=== PATIENT | female | born 1940 | race African-American/Black ===

== ENCOUNTER 2017-10-23 10:40 | Emergency (ER) | payer MEDICARE ==
[~2017-10-23] VITALS: Ht 160 cm; Wt 94.3 kg
[~2017-10-23 10:40] MED LIST: ALLP300T; AMOX500C2; ASCO500C14; ASPI-86; FLC150T PO; FURO80TA3; LEVO125T; LISI10TA2 PO; MECL-124 PO; MULT1TAB5; NTR.4SL; PANT40TA; POTA10TA6; TRZS2T; [UNRECOGNIZED DRUG - CODE]
--- OUTSIDE RECORDS SUMMARY | 2017-10-23 10:49 | XMS REPORT | CCD ---
Author Author Charlene Valerio MD, [facility] Address [address] [place] [address] Phone Care Team Providers Care Tobacco Educator Name Role Phone PP Unavailable CCM Unavailable Summary Purpose Interface Exchange Insurance Providers Payer name Policy type / Coverage type Covered constitution party ID Effective Begin Date Effective End Date [employer] CLAIMS Medicare Part B [id number] Unknown Family history Brother Diagnosis Age At Onset Hypertension Unknown Heart Attack Unknown Cancer Unknown Arthritis Unknown Alcoholism Unknown Mother Diagnosis Age At Onset Hypertension Unknown Arthritis Unknown Heart Attack Unknown Father Diagnosis Age At Onset Hypertension Unknown Son Diagnosis Age At Onset Hypertension Unknown Alcoholism Unknown Arthritis Unknown Social History Social History Element Codes Description Effective Dates Living arrangements Unknown House 11/12/2015 Employment Unknown Retired 11/12/2015 Marital status Unknown 10/28/2014 Marital status Unknown 10/28/2014 Number of children Unknown 2 10/28/2014 Number of children Unknown 2 10/28/2014 Employment Unknown Currently employed conference service coordinator 10/28/[address]: 0918509 Former smoker quit 10 years ago 10/28/[address]: 644081676 Never drinks alcohol 10/28/2014 Allergies, Adverse Reactions, Alerts Allergies, Adverse Reactions, Alerts data not found Past Medical History Illness Codes Condition Status Onset Date Resolved Date Atrophy of thyroid (acquired) ICD-9: 244.8 ICD-10: E03.4 Active 04/03/2016 Unknown Essential (primary) hypertension ICD-9: 401.1 ICD-10: I10 Active 04/03/2016 Unknown Hypokalemia ICD-9: 276.8 ICD-10: E87.6 Active 08/23/2015 Unknown Mixed hyperlipidemia ICD-9: 272.4 ICD-10: E78.2 Active 10/13/2015 Unknown Type 2 diabetes mellitus without complications ICD-9: 250.00 ICD-10: E11.9 Active 10/27/2014 Unknown Pain in left hip ICD-9 : 719.45 ICD-10: M25.552 Active 06/07/2015 Unknown Primary osteoarthritis, left ankle and foot ICD-9: 715.97 ICD-10: M19.072 Active 04/03/2016 Unknown Primary osteoarthritis, right ankle and foot ICD-9: 715.97 ICD-10: M19.071 Active 04/03/2016 Unknown Primary osteoarthritis, right shoulder ICD-9: 715.91 ICD-10: M19.011 Active 04/03/2016 Unknown Essential (primary) hypertension ICD-9: 401.9 ICD-10: I10 Active 10/27/2014 Unknown Hypothyroidism, unspecified ICD-9: 244.9 ICD-10: E03.9 Active 10/27/2014 Unknown Primary osteoarthritis, unspecified site ICD-9: 715.90 ICD-10: M19.91 Active 06/07/2015 Unknown Hyperlipidemia Unknown Active 12/19/2014 Unknown HYPERLIPIDEMIA ICD-9: 272.4 Active 12/18/2014 Unknown Arthritis Unknown Active 10/28/2014 Unknown Diabetes Unknown Active 10/28/2014 Unknown Gout Unknown Active 10/28/2014 Unknown Hypertension Unknown Active 10/28/2014 Unknown Hypothryroidism Unknown Active 10/28/2014 Unknown Hypothyroid Unknown Active 10/28/2014 Unknown Osteoarthritis Unknown Active 10/28/2014 Unknown sleep apnea Unknown Active 10/28/2014 Unknown DIABETES TYPE II ICD-9 : 250.00 Active 10/27/2014 Unknown EDEMA ICD-9: 782.3 Active 10/27/2014 Unknown ESSENTIAL HYPERTENSION ICD-9: 401.9 Active 10/27/2014 Unknown HYPOTHYROIDISM ICD-9: 244.9 Active 10/27/2014 Unknown Osteoarthritis ICD-9: 715.90 Active 10/27/2014 Unknown Problems Condition Codes Effective Dates Condition Status Atrophy of thyroid (acquired) ICD-9: 244.8 ICD-10: E03.4 04/03/2016 Active Essential (primary) hypertension ICD-9: 401.1 ICD-10: I10 04/03/2016 Active Hypokalemia ICD-9: 276.8 ICD-10: E87.6 08/23/2015 Active Mixed hyperlipidemia ICD-9: 272.4 ICD-10: E78.2 10/13/2015 Active Type 2 diabetes mellitus without complications ICD-9: 250.00 ICD-10: E11.9 10/27/2014 Active Pain in left hip ICD-9 : 719.45 ICD-10: M25.552 06/07/2015 Active Primary osteoarthritis, left ankle and foot ICD-9: 715.97 ICD-10: M19.072 04/03/2016 Active Primary osteoarthritis, right ankle and foot ICD-9: 715.97 ICD-10: M19.071 04/03/2016 Active Primary osteoarthritis, right shoulder ICD-9: 715.91 ICD-10: M19.011 04/03/2016 Active Essential (primary) hypertension ICD-9: 401.9 ICD-10: I10 10/27/2014 Active Hypothyroidism, unspecified ICD-9: 244.9 ICD-10: E03.9 10/27/2014 Active Primary osteoarthritis, unspecified site ICD-9: 715.90 ICD-10: M19.91 06/07/2015 Active Hyperlipidemia Unknown 12/19/2014 Active HYPERLIPIDEMIA ICD-9: 272.4 12/18/2014 Active Arthritis Unknown 10/28/2014 Active Diabetes Unknown 10/28/2014 Active Gout Unknown 10/28/2014 Active Hypertension Unknown 10/28/2014 Active Hypothryroidism Unknown 10/28/2014 Active Hypothyroid Unknown 10/28/2014 Active Osteoarthritis Unknown 10/28/2014 Active sleep apnea Unknown 10/28/2014 Active DIABETES TYPE II ICD-9 : 250.00 10/27/2014 Active EDEMA ICD-9: 782.3 10/27/2014 Active ESSENTIAL HYPERTENSION ICD-9: 401.9 10/27/2014 Active HYPOTHYROIDISM ICD-9: 244.9 10/27/2014 Active Osteoarthritis ICD-9: 715.90 10/27/2014 Active Medications Medication Codes Instructions Start Date Stop Date Status Fill Instructions hydrochlorothiazide 12.5 mg capsule RxNorm: 781918 TAKE 1 CAPSULE BY MOUTH ONCE DAILY 05/29/2017 11/24/2017 Active Generic For:MICROZIDE 12.5 MG CAPSULE 2017 9:17:14 AM naproxen 500 mg tablet,delayed release RxNorm: 510951 TAKE 1 TABLET BY MOUTH TWICE DAILY 05/17/2017 08/14/2017 Active Generic For:EC-NAPROSYN 500 MG TABLET EC N O T I C E Last quantity doesn't match original quantity propranolol 60 mg tablet RxNorm: 439251 TAKE 1 TABLET BY MOUTH TWICE DAILY 04/17/2017 08/14/2017 Active Generic For:INDERAL 60 MG TABLET 04/17/2017 9:35:56 AM Synthroid 112 mcg tablet RxNorm: 499338 Tablet(s) TAKE 1 TABLET BY MOUTH ONCE DAILY 03/14/2017 09/09/2017 Active meclizine 25 mg tablet RxNorm: 439980 TAKE 1 TABLET BY MOUTH EVERY SIX HOURS 02/17/2017 04/26/2017 Inactive Generic For:ANTIVERT 25MG 02/17/2017 9:10:40 AM clonidine HCl 0.1 mg tablet RxNorm: 322400 TAKE 1 TABLET BY MOUTH TWICE DAILY 01/19/2017 01/13/2018 Active Generic For:*CATAPRES 0.1MG 01/19/2017 12:14:44 PM terazosin 2 mg capsule RxNorm: 431933 TAKE ONE CAPSULE BY MOUTH ONCE DAILY 01/18/2017 01/12/2018 Active pantoprazole 40 mg tablet,delayed release RxNorm: 839511 TAKE 1 TABLET BY MOUTH DAILY 01/13/2017 05/12/2017 Inactive Generic For:PROTONIX 40MG 01/13/2017 12:17: 18 PM Lasix 80 mg tablet RxNorm: 954291 TAKE 1 TABLET BY MOUTH ONCE DAILY. 12/30/2016 07/27/2017 Active 12/30/2016 12:20:22 PM allopurinol 300 mg tablet RxNorm: 367314 Tablet(s) TAKE 1 TABLET BY MOUTH ONCE DAILY. 12/20/2016 12/14/2017 Active propranolol 60 mg tablet RxNorm: 661242 1 Tablet(s) PO BID 02/201712/14/2016 Inactive propranolol 60 mg tablet RxNorm: 344240 1 Tablet(s) PO BID 1 Tablet(s) PO BID 12/15/2016 04/16/2017 Inactive hydrochlorothiazide 12.5 mg capsule RxNorm: 998437 1 Capsule(s) PO daily 11/21/2016 05/19/2017 Inactive irbesartan 300 mg-hydrochlorothiazide 12.5 mg tablet RxNorm: 402791 TAKE 1 TABLET BY MOUTH DAILY 11/16/2016 07/13/2017 Active Generic For:AVALIDE 300-12.5 2016 9:01:14 AM Synthroid 112 mcg tablet RxNorm: 391814 Tablet(s) TAKE 1 TABLET BY MOUTH ONCE DAILY 11/16/2016 02/13/2017 Inactive naproxen 500 mg tablet,delayed release RxNorm: 961627 1 Tablet(s) PO BID 09/05/2016 12/03/2016 Inactive pantoprazole 40 mg tablet,delayed release RxNorm: 594921 TAKE 1 TABLET BY MOUTH DAILY 08/17/2016 12/14/2016 Inactive Generic For:PROTONIX 40MG 08/17/2016 9:32:54 AM Synthroid 112 mcg tablet RxNorm: 401186 Tablet(s) TAKE 1 TABLET BY MOUTH ONCE DAILY 08/15/2016 11/12/2016 Inactive propranolol 60 mg tablet RxNorm: 946451 1 Tablet(s) PO BID 11/29/2016 Inactive terazosin 2 mg capsule RxNorm: 785929 TAKE ONE CAPSULE BY MOUTH ONCE DAILY 07/18/2016 01/13/2017 Inactive meclizine 25 mg tablet RxNorm: 031368 TAKE 1 TABLET BY MOUTH EVERY SIX HOURS 07/11/2016 09/17/2016 Inactive Generic For:ANTIVERT 25MG 07/09/2016 10:01:07 AM potassium chloride ER 10 mEq tablet,extended release RxNorm: 116919 TAKE 2 TABLETS BY MOUTH THREE TIMES DAILY 05/13/2016 11/08/2016 Inactive Generic For:K- TAB 10 MEQ TABLET SA 05/13/2016 8:53:02 AM N O T I C E Last quantity doesn' t match original quantity hydrochlorothiazide 12.5 mg capsule RxNorm: 475751 1 Capsule(s) PO daily 05/06/2016 11/01/2016 Inactive pantoprazole 40 mg tablet,delayed release RxNorm: 211744 TAKE 1 TABLET BY MOUTH DAILY 04/19/2016 08/16/2016 Inactive Generic For:PROTONIX 40MG 04/19/2016 9:02:12 AM irbesartan 300 mg-hydrochlorothiazide 12.5 mg tablet RxNorm: 887490 TAKE 1 TABLET BY MOUTH DAILY 03/21/2016 11/15/2016 Inactive Generic For:AVALIDE 300-12.5 2015 9:00:59 AM meclizine 25 mg tablet RxNorm: 985099 TAKE 1 TABLET BY MOUTH EVERY SIX HOURS 02/02/2016 04/10/2016 Inactive Generic For:ANTIVERT 25MG 02/02/2016 9:01:57 AM terazosin 2 mg capsule RxNorm: 048223 TAKE ONE CAPSULE BY MOUTH ONCE DAILY 01/19/2016 07/16/2016 Inactive Synthroid 112 mcg tablet RxNorm: 129756 TAKE 1 TABLET BY MOUTH ONCE DAILY 01/15/2016 07/12/2016 Inactive 01/15/2016 10:18:42 AM N O T I C E Last quantity doesn't match original quantity clonidine HCl 0.1 mg tablet RxNorm: 981714 TAKE 1 TABLET BY MOUTH TWICE DAILY 01/15/2016 01/08/2017 Inactive Generic For:*CATAPRES 0.1MG 01/15/2016 10:18:15 AM N O T I C E Last quantity doesn't match original quantity Nitrostat 0.4 mg sublingual tablet RxNorm: 246032 1 Tablet(s) SL as needed 12/31/2015 No Stop Date Active hydrochlorothiazide 12.5 mg capsule RxNorm: 784033 1 Capsule(s) PO daily 12/22/2015 04/19/2016 Inactive pantoprazole 40 mg tablet,delayed release RxNorm: 499399 TAKE 1 TABLET BY MOUTH DAILY 12/22/2015 04/18/2016 Inactive Generic For:PROTONIX 40MG 12/21/2015 12:25: 32 PM hydrochlorothiazide 12.5 mg capsule RxNorm: 511342 1 Capsule(s) PO daily 12/22/2015 12/21/2015 Inactive allopurinol 300 mg tablet RxNorm: 859010 Tablet(s) TAKE 1 TABLET BY MOUTH ONCE DAILY. 11/23/2015 11/16/2016 Inactive naproxen 500 mg tablet,delayed release RxNorm: 932298 1 Tablet(s) PO BID 11/16/2015 02/13/2016 Inactive propranolol 80 mg tablet RxNorm: 305562 TAKE 1 TABLET BY MOUTH TWICE DAILY 11/06/2015 08/01/2016 Inactive Generic For:INDERAL 80 MG TABLET 11/06/2015 9:07: 57 AM terazosin 2 mg capsule RxNorm: 850938 TAKE ONE CAPSULE BY MOUTH ONCE DAILY 10/22/2015 01/18/2016 Inactive Synthroid 112 mcg tablet RxNorm: 176278 1 Tablet(s) PO daily 01/14/2016 Inactive meclizine 25 mg tablet RxNorm: 712990 1 Tablet(s) PO Q6 201512/05/2015 Inactive potassium chloride ER 10 mEq tablet,extended release RxNorm: 672621 2 Tablet(s) PO TID 08/31/2015 02/26/2016 Inactive pantoprazole 40 mg tablet,delayed release RxNorm: 276407 1 Tablet(s) PO daily 07/27/2015 11/23/2015 Inactive irbesartan 300 mg-hydrochlorothiazide 12.5 mg tablet RxNorm: 632229 1 Tablet(s) PO daily 07/27/2015 03/20/2016 Inactive potassium chloride ER 10 mEq tablet,extended release RxNorm: 555296 2 Tablet(s) PO TID 07/24/2015 08/22/2015 Inactive potassium chloride ER 10 mEq tablet,extended release RxNorm: 648971 Tablet(s) TID 2 Tablet(s) PO 07/01/2015 07/23/2015 Inactive Lasix 80 mg tablet RxNorm: 975008 TAKE 1 TABLET BY MOUTH ONCE DAILY. 06/29/2015 01/24/2016 Inactive N O T I C E PRESCRIPTION PREVIOUSLY AUTHORIZED BY DOCTOR: NADINE JAMES potassium chloride ER 10 mEq tablet,extended release RxNorm: 910676 Tablet(s) BID 2 Tablet(s) PO 06/22/2015 06/30/2015 Inactive potassium chloride ER 10 mEq tablet,extended release RxNorm: 892414 Tablet(s) BID 2 Tablet(s) PO daily 06/09/20152015 Inactive Synthroid 112 mcg tablet RxNorm: 521715 1 Tablet(s) PO daily 09/30/2015 Inactive hydrochlorothiazide 12.5 mg tablet RxNorm: 208588 1 Tablet(s) PO daily 1 Tablet(s ) PO daily 05/26/2015 11/11/2015 Inactive Synthroid 125 mcg tablet RxNorm: 466416 1 Tablet(s) PO daily 06/08/2015 Inactive Synthroid 125 mcg tablet RxNorm: 206551 1 Tablet(s) PO daily 04/05/2015 Inactive hydrochlorothiazide 12.5 mg tablet RxNorm: 608997 1 Tablet(s) PO daily 1 Tablet(s ) PO daily 03/24/2015 05/22/2015 Inactive potassium chloride ER 10 mEq tablet,extended release RxNorm: 599092 2 Tablet(s) PO daily 03/16/2015 06/08/2015 Inactive allopurinol 300 mg tablet RxNorm: 730123 TAKE 1 TABLET BY MOUTH ONCE DAILY. 03/09/2015 11/22/2015 Inactive N O T I C E PRESCRIPTION PREVIOUSLY AUTHORIZED BY DOCTOR:NADINE JAMES clonidine HCl 0.1 mg tablet RxNorm: 173415 1 Tablet(s) PO BID 01/12/2015 01/06/2016 Inactive Synthroid 137 mcg tablet RxNorm: 708807 1 Tablet(s) PO daily 04/05/2015 Inactive meclizine 25 mg tablet RxNorm: 457763 1 Tablet(s) PO Q6 201403/22/2015 Inactive Voltaren 1 % topical gel RxNorm: 961348 4 Gram(s) TOP QID to bilateral knees and left hip 12/19/2014 07/16/2015 Inactive hydrochlorothiazide 12.5 mg tablet RxNorm: 410328 1 Tablet(s) PO daily 12/15/2014 02/12/2015 Inactive irbesartan 300 mg-hydrochlorothiazide 12.5 mg tablet RxNorm: 618388 1 Tablet(s) PO daily 11/25/2014 07/22/2015 Inactive potassium chloride ER 10 mEq tablet,extended release RxNorm: 850425 2 Tablet(s) PO daily 11/13/2014 03/12/2015 Inactive potassium chloride ER 10 mEq tablet,extended release RxNorm: 565374 2 Tablet(s) PO daily 11/13/2014 11/12/2014 Inactive propranolol 80 mg tablet RxNorm: 465706 1 Tablet(s) PO BID 10/28/2015 Inactive terazosin 2 mg capsule RxNorm: 083904 1 Capsule(s) PO daily 10/21/2015 Inactive terazosin 2 mg capsule RxNorm: 900695 1 Capsule(s) PO daily 10/29/2014 Inactive pantoprazole 40 mg tablet,delayed release RxNorm: 246271 1 Tablet(s) PO daily 10/28/2014 10/27/2014 Inactive hydrochlorothiazide 12.5 mg tablet RxNorm: 546922 1 Tablet(s) PO daily 10/28/2014 11/26/2014 Inactive pantoprazole 40 mg tablet,delayed release RxNorm: 062138 1 Tablet(s) PO daily 10/28/2014 02/24/2015 Inactive propranolol 80 mg tablet RxNorm: 853465 1 Tablet(s) PO BID 09/30/2014 Inactive propranolol 80 mg tablet RxNorm: 388561 1 Tablet(s) PO BID 10/30/2014 Inactive clonidine HCl 0.1 mg tablet RxNorm: 353206 1 Tablet(s) PO BID 09/08/2014 01/05/2015 Inactive Nitrostat 0.4 mg sublingual tablet RxNorm: 486108 1 Tablet(s) SL as needed No Start Date 12/30/2015 Inactive KCL 10 meq RxNorm: 1 Tablet(s) PO BID No Start Date 11/13/2014 Inactive allopurinol 300 mg tablet RxNorm: 337240 1 Tablet(s) PO daily No Start Date 03/08/2015 Inactive meclizine 25 mg tablet RxNorm: 767428 1 Tablet(s) PO TID No Start Date 12/22/2014 Inactive naproxen 500 mg tablet,delayed release RxNorm: 477526 1 Tablet(s) PO BID No Start Date 11/15/2015 Inactive irbesartan 300 mg-hydrochlorothiazide 12.5 mg tablet RxNorm: 398959 1 Tablet(s) PO daily No Start Date 11/24/2014 Inactive Synthroid 150 mcg tablet RxNorm: 843457 1 Tablet(s) PO daily No Start Date 12/23/2014 Inactive Lasix 80 mg tablet RxNorm: 283145 1 Tablet(s) PO daily No Start Date 06/28/2015 Inactive Medication Administered No Medication Administered data Immunizations No Immunization data Assessments Condition Codes Effective Dates Essential (primary) hypertension ICD-10: I10 ICD-9: 401.1 12/15/2016 Atrophy of thyroid (acquired) ICD-10: E03.4 ICD-9: 244.8 12/15/2016 Hypokalemia ICD-10: E87.6 ICD-9: 276.8 12/15/2016 Type 2 diabetes mellitus without complications ICD-10: E11.9 ICD-9: 250.00 08/18/2016 Mixed hyperlipidemia ICD-10: E78.2 ICD-9: 272.4 08/18/2016 Primary osteoarthritis, right ankle and foot ICD-10: M19.071 ICD-9: 715.97 08/02/2016 Primary osteoarthritis, left ankle and foot ICD-10: M19.072 ICD-9: 715.97 08/02/2016 Pain in left hip ICD-10: M25.552 ICD-9: 719.45 08/02/2016 Primary osteoarthritis, right shoulder ICD-10: M19.011 ICD-9: 715.91 08/02/2016 Hypothyroidism, unspecified ICD-10: E03.9 ICD-9: 244.9 11/12/2015 Essential (primary) hypertension ICD-10: I10 ICD-9: 401.9 11/12/2015 Primary osteoarthritis, unspecified site ICD-10: M19.91 ICD-9: 715.90 06/08/2015 ESSENTIAL HYPERTENSION ICD-9: 401.9 12/19 Osteoarthritis ICD-9: 715.90 12/19/2014 DIABETES TYPE II ICD-9: 250.00 2014 HYPERLIPIDEMIA ICD-9: 272.4 12/19/2014 HYPOTHYROIDISM ICD-9: 244.9 10/28/2014 EDEMA ICD-9: 782.3 10/28/2014 Reason For Visit Reason For Visit Effective Dates Notes hypertension 12/15/2016 hypertension 08/18/2016 hypertension 08/02/2016 hypertension 04/04/2016 hypertension 11/12/2015 blood pressure followup 06/08/2015 hands at night joint complaint 12/19/2014 joint complaint 10/28/2014 Results Observation Observation Code Item Item Code Result Date Lipid Ord30 CHOL 213 mg/dL 04/28/2016 Lipid Ord30 HDL 58.0 mg/dl 04/28/2016 Lipid Ord30 TRIG 70 mg/dL 04/28/2016 Lipid Ord30 LDL 141 mg/dL 04/28/2016 Lipid Ord30 C/HDL 3.7 Ratio 04/28/2016 Cbc With Differential Ord2 WBC 4.77 K/ul 04/28/2016 Cbc With Differential Ord2 RBC 3.97 M/ul 04/28/2016 Cbc With Differential Ord2 HGB 12.4 g/dl 04/28/2016 Cbc With Differential Ord2 HCT 37.6 % 04/28/2016 Cbc With Differential Ord2 Neut% 58.3 % 04/28/2016 Cbc With Differential Ord2 MCV 94.7 fl 04/28/2016 Cbc With Differential Ord2 Lymph% 33.1 % 04/28/2016 Cbc With Differential Ord2 MCH 31.2 pg 04/28/2016 Cbc With Differential Ord2 [place]% 7.8 % 04/28/2016 Cbc With Differential Ord2 Eos% 0.6 % 04/28/2016 Cbc With Differential Ord2 MCHC 33.0 pg 04/28/2016 Cbc With Differential Ord2 Baso% 0.2 % 04/28/2016 Cbc With Differential Ord2 PLT 191 K/ul 04/28/2016 Cbc With Differential Ord2 RDW 15.4 % 04/28/2016 Cbc With Differential Ord2 Neut ABS# 2.78 K/ul 04/28/2016 Cbc With Differential Ord2 Lymph ABS# 1.58 K/ul 04/28/2016 Cbc With Differential Ord2 [place] ABS# 0.4 K/ul 04/28/2016 Cbc With Differential Ord2 Eos ABS# 0.0 K/ul 04/28/2016 Cbc With Differential Ord2 Baso ABS# 0.0 K/ul 04/28/2016 %Hba1C Uor900 % HbA1c 93305-6 5.4 % 04/28/2016 %Hba1C Rgb040 Gluc Ave 108 mg/dL 04/28/2016 Tsh Ord6 hTSH II 2.73 uIU/mL 04/28/2016 Comp Metabolic Wyt437 NA 138 mEq/L 04/28/2016 Comp Metabolic Kbl968 K 3.5 mEq/L 04/28/2016 Comp Metabolic Wzy148 CL 101 mEq/L 04/28/2016 Comp Metabolic Eep853 CO2 30.0 mEq/L 04/28/2016 Comp Metabolic Wtc165 ANION GAP 11 04/28/2016 Comp Metabolic Xkn318 GLUCOSE 91 mg/dL 04/28/2016 Comp Metabolic Lsv184 Creat 0.5 mg/dL 04/28/2016 Comp Metabolic Qdm511 eGFR 127 ml/min/1.73m2 04/28/2016 Comp Metabolic Eno946 BUN 14 mg/dL 04/28/2016 Comp Metabolic Yyi217 B/C Ratio 28.0 Ratio 04/28/2016 Comp Metabolic Sex867 CALCIUM 10.0 mg/dL 04/28/2016 Comp Metabolic Qav007 ALK PHOS 115 U/L 04/28/2016 Comp Metabolic Oht302 AST(SGOT) 15 U/L 04/28/2016 Comp Metabolic Ybr165 ALT(SGPT) 11 U/L 04/28/2016 Comp Metabolic Yzk454 BILI T 0.7 mg/dL 04/28/2016 Comp Metabolic Qgv528 ALBUMIN 3.9 g/dL 04/28/2016 Comp Metabolic Zqf674 TPRO 6.8 g/dL 04/28/2016 Comp Metabolic Gsi476 GLOB 2.9 g/dL 04/28/2016 Comp Metabolic Qzp455 A/G Ratio 1.4 Ratio 04/28/2016 Comp Metabolic Pxz992 Osmo 276 mOsmo 04/28/2016 Metabolic Ord15 NA 138 mEq/L 10/15/2015 Metabolic Ord15 K 3.4 mEq/L 10/15/2015 Metabolic Ord15 CL 101 mEq/L 10/15/2015 Metabolic Ord15 CO2 28.0 mEq/L 10/15/2015 Metabolic Ord15 GLUCOSE 82 mg/dL 10/15/2015 Metabolic Ord15 BUN 14 mg/dL 10/15/2015 Metabolic Ord15 Creat 0.5 mg/dL 10/15/2015 Metabolic Ord15 B/C Ratio 25.9 Ratio 10/15/2015 Metabolic Ord15 eGFR 117 ml/min/1.73m2 10/15/2015 Metabolic Ord15 Osmo 275 mOsmo 10/15/2015 Metabolic Ord15 ANION GAP 12 10/15/2015 Metabolic Ord15 CALCIUM 10.2 mg/dL 10/15/2015 Tsh Ord6 hTSH II 2.70 uIU/mL 10/15/2015 Free T4 Kww899 FREE T4 1.33 ng/dL 10/15/2015 %Hba1C Dru996 % HbA1c 34626-0 5.6 % 10/15/2015 %Hba1C Zzn076 Gluc Ave 114 mg/dL 10/15/2015 Cbc With Differential Ord2 WBC 6.11 K/ul 10/15/2015 Cbc With Differential Ord2 RBC 4.04 M/ul 10/15/2015 Cbc With Differential Ord2 HGB 12.5 g/dl 10/15/2015 Cbc With Differential Ord2 HCT 37.2 % 10/15/2015 Cbc With Differential Ord2 Neut% 60.1 % 10/15/2015 Cbc With Differential Ord2 MCV 92.1 fl 10/15/2015 Cbc With Differential Ord2 Lymph% 30.3 % 10/15/2015 Cbc With Differential Ord2 MCH 30.9 pg 10/15/2015 Cbc With Differential Ord2 [place]% 7.0 % 10/15/2015 Cbc With Differential Ord2 Eos% 2.1 % 10/15/2015 Cbc With Differential Ord2 MCHC 33.6 pg 10/15/2015 Cbc With Differential Ord2 Baso% 0.5 % 10/15/2015 Cbc With Differential Ord2 PLT 159 K/ul 10/15/2015 Cbc With Differential Ord2 Neut ABS# 3.67 K/ul 10/15/2015 Cbc With Differential Ord2 RDW 15.0 % 10/15/2015 Cbc With Differential Ord2 Lymph ABS# 1.85 K/ul 10/15/2015 Cbc With Differential Ord2 [place] ABS# 0.4 K/ul 10/15/2015 Cbc With Differential Ord2 Eos ABS# 0.1 K/ul 10/15/2015 Cbc With Differential Ord2 Baso ABS# 0.0 K/ul 10/15/2015 Comp Metabolic Hjo607 NA 137 mEq/L 08/31/2015 Comp Metabolic Hrg948 K 3.3 mEq/L 08/31/2015 Comp Metabolic Ata170 CL 99 mEq/L 08/31/2015 Comp Metabolic Dfq323 CO2 29.0 mEq/L 08/31/2015 Comp Metabolic Zxf737 ANION GAP 12 08/31/2015 Comp Metabolic Kss247 GLUCOSE 98 mg/dL 08/31/2015 Comp Metabolic Ivp279 Creat 0.7 mg/dL 08/31/2015 Comp Metabolic Sad114 eGFR 82 ml/min/1.73m2 08/31/2015 Comp Metabolic Eaa608 BUN 18 mg/dL 08/31/2015 Comp Metabolic Vyl573 B/C Ratio 24.7 Ratio 08/31/2015 Comp Metabolic Rek245 CALCIUM 10.1 mg/dL 08/31/2015 Comp Metabolic Uwu815 ALK PHOS 89 U/L 08/31/2015 Comp Metabolic Fmh623 AST(SGOT) 18 U/L 08/31/2015 Comp Metabolic Vob448 ALT(SGPT) 17 U/L 08/31/2015 Comp Metabolic Xne110 BILI T 0.8 mg/dL 08/31/2015 Comp Metabolic Qro343 ALBUMIN 3.9 g/dL 08/31/2015 Comp Metabolic Rax163 TPRO 6.8 g/dL 08/31/2015 Comp Metabolic Scx394 GLOB 2.9 g/dL 08/31/2015 Comp Metabolic Vfg346 A/G Ratio 1.3 Ratio 08/31/2015 Comp Metabolic Urg107 Osmo 276 mOsmo 08/31/2015 Comp Metabolic Bsh519 NA 135 mEq/L 2015 Comp Metabolic Gcp403 K 3.6 mEq/L 2015 Comp Metabolic Fff404 CL 97 mEq/L 2015 Comp Metabolic Unk290 CO2 29.0 mEq/L 2015 Comp Metabolic Dwo663 ANION GAP 13 2015 Comp Metabolic Soq660 GLUCOSE 79 mg/dL 2015 Comp Metabolic Dvn317 Creat 0.9 mg/dL 2015 Comp Metabolic Tai318 eGFR 65 ml/min/1.73m2 2015 Comp Metabolic Kse698 BUN 18 mg/dL 2015 Comp Metabolic Cpd924 B/C Ratio 20.0 Ratio 2015 Comp Metabolic Bcw395 CALCIUM 10.2 mg/dL 2015 Comp Metabolic Ibv904 ALK PHOS 115 U/L 2015 Comp Metabolic Zmw357 AST(SGOT) 16 U/L 2015 Comp Metabolic Clp432 ALT(SGPT) 11 U/L 2015 Comp Metabolic Aqa275 BILI T 0.6 mg/dL 2015 Comp Metabolic Pvn808 ALBUMIN 3.9 g/dL 2015 Comp Metabolic Tfc314 TPRO 7.0 g/dL 2015 Comp Metabolic Jdd733 GLOB 3.1 g/dL 2015 Comp Metabolic Zok469 A/G Ratio 1.3 Ratio 2015 Comp Metabolic Ezd280 Osmo 271 mOsmo 2015 Comp Metabolic Djx904 NA 134 mEq/L 06/29/2015 Comp Metabolic Mpj198 K 3.3 mEq/L 06/29/2015 Comp Metabolic Tvu197 CL 95 mEq/L 06/29/2015 Comp Metabolic Jsr508 CO2 29.0 mEq/L 06/29/2015 Comp Metabolic Wer013 ANION GAP 13 06/29/2015 Comp Metabolic Fsd806 GLUCOSE 94 mg/dL 06/29/2015 Comp Metabolic Ero015 Creat 0.5 mg/dL 06/29/2015 Comp Metabolic Hee992 eGFR 137 ml/min/1.73m2 06/29/2015 Comp Metabolic Jle283 BUN 11 mg/dL 06/29/2015 Comp Metabolic Jxl805 B/C Ratio 23.4 Ratio 06/29/2015 Comp Metabolic Erj599 CALCIUM 10.1 mg/dL 06/29/2015 Comp Metabolic Zbh612 ALK PHOS 122 U/L 06/29/2015 Comp Metabolic Qrz519 AST(SGOT) 18 U/L 06/29/2015 Comp Metabolic Rgn382 ALT(SGPT) 13 U/L 06/29/2015 Comp Metabolic Jaf088 BILI T 0.8 mg/dL 06/29/2015 Comp Metabolic Hmf799 ALBUMIN 4.1 g/dL 06/29/2015 Comp Metabolic Xev784 TPRO 7.1 g/dL 06/29/2015 Comp Metabolic Vdg890 GLOB 3.0 g/dL 06/29/2015 Comp Metabolic Nmh044 A/G Ratio 1.3 Ratio 06/29/2015 Comp Metabolic Qhv290 Osmo 267 mOsmo 06/29/2015 Cbc With Differential Ord2 WBC 6.10 K/ul 06/29/2015 Cbc With Differential Ord2 RBC 4.33 M/ul 06/29/2015 Cbc With Differential Ord2 HGB 13.1 g/dl 06/29/2015 Cbc With Differential Ord2 Neut% 61.3 % 06/29/2015 Cbc With Differential Ord2 HCT 40.3 % 06/29/2015 Cbc With Differential Ord2 MCV 93.1 fl 06/29/2015 Cbc With Differential Ord2 Lymph% 30.0 % 06/29/2015 Cbc With Differential Ord2 MCH 30.3 pg 06/29/2015 Cbc With Differential Ord2 [place]% 7.4 % 06/29/2015 Cbc With Differential Ord2 MCHC 32.5 pg 06/29/2015 Cbc With Differential Ord2 Eos% 1.0 % 06/29/2015 Cbc With Differential Ord2 PLT 218 K/ul 06/29/2015 Cbc With Differential Ord2 Baso% 0.3 % 06/29/2015 Cbc With Differential Ord2 Neut ABS# 3.74 K/ul 06/29/2015 Cbc With Differential Ord2 RDW 15.4 % 06/29/2015 Cbc With Differential Ord2 Lymph ABS# 1.83 K/ul 06/29/2015 Cbc With Differential Ord2 [place] ABS# 0.5 K/ul 06/29/2015 Cbc With Differential Ord2 Eos ABS# 0.1 K/ul 06/29/2015 Cbc With Differential Ord2 Baso ABS# 0.0 K/ul 06/29/2015 Cbc With Differential Ord2 New Analyzer Notice Please note new ref ranges starting 05-20-2015 due to implemntation of new five part differential hematolgy analyzer. 06/29/2015 Cbc With Differential Ord2 WBC 6.48 K/ul 06/08/2015 Cbc With Differential Ord2 RBC 4.19 M/ul 06/08/2015 Cbc With Differential Ord2 HGB 12.7 g/dl 06/08/2015 Cbc With Differential Ord2 HCT 39.0 % 06/08/2015 Cbc With Differential Ord2 Neut% 61.0 % 06/08/2015 Cbc With Differential Ord2 Lymph% 31.3 % 06/08/2015 Cbc With Differential Ord2 MCV 93.1 fl 06/08/2015 Cbc With Differential Ord2 MCH 30.3 pg 06/08/2015 Cbc With Differential Ord2 [place]% 6.3 % 06/08/2015 Cbc With Differential Ord2 MCHC 32.6 pg 06/08/2015 Cbc With Differential Ord2 Eos% 1.1 % 06/08/2015 Cbc With Differential Ord2 PLT 215 K/ul 06/08/2015 Cbc With Differential Ord2 Baso% 0.3 % 06/08/2015 Cbc With Differential Ord2 RDW 14.9 % 06/08/2015 Cbc With Differential Ord2 Neut ABS# 3.95 K/ul 06/08/2015 Cbc With Differential Ord2 Lymph ABS# 2.03 K/ul 06/08/2015 Cbc With Differential Ord2 [place] ABS# 0.4 K/ul 06/08/2015 Cbc With Differential Ord2 Eos ABS# 0.1 K/ul 06/08/2015 Cbc With Differential Ord2 Baso ABS# 0.0 K/ul 06/08/2015 Cbc With Differential Ord2 New Analyzer Notice Please note new ref ranges starting 05-20-2015 due to implemntation of new five part differential hematolgy analyzer. 06/08/2015 Comp Metabolic Wzx209 NA 137 mEq/L 06/08/2015 Comp Metabolic Dua111 K 3.0 mEq/L 06/08/2015 Comp Metabolic Ptr463 CL 98 mEq/L 06/08/2015 Comp Metabolic Cah341 CO2 27.0 mEq/L 06/08/2015 Comp Metabolic Zfn690 ANION GAP 15 06/08/2015 Comp Metabolic Mbf625 GLUCOSE 83 mg/dL 06/08/2015 Comp Metabolic Rgb720 Creat 0.6 mg/dL 06/08/2015 Comp Metabolic Qmq504 eGFR 114 ml/min/1.73m2 06/08/2015 Comp Metabolic Jtp904 BUN 17 mg/dL 06/08/2015 Comp Metabolic Ltf629 B/C Ratio 30.9 Ratio 06/08/2015 Comp Metabolic Txz128 CALCIUM 10.3 mg/dL 06/08/2015 Comp Metabolic Qsi967 ALK PHOS 119 U/L 06/08/2015 Comp Metabolic Fli629 AST(SGOT) 17 U/L 06/08/2015 Comp Metabolic Vlv076 ALT(SGPT) 14 U/L 06/08/2015 Comp Metabolic Btb972 BILI T 0.8 mg/dL 06/08/2015 Comp Metabolic Rgn967 ALBUMIN 3.9 g/dL 06/08/2015 Comp Metabolic Kbm279 TPRO 7.0 g/dL 06/08/2015 Comp Metabolic Qjy113 GLOB 3.2 g/dL 06/08/2015 Comp Metabolic Icj329 A/G Ratio 1.2 Ratio 06/08/2015 Comp Metabolic Dqm619 Osmo 275 mOsmo 06/08/2015 %Hba1C Dyz301 % HbA1c 96973-5 5.7 % 06/08/2015 %Hba1C Riz991 Gluc Ave 117 mg/dL 06/08/2015 Tsh Ord6 hTSH II 1.61 uIU/mL 06/08/2015 Free T4 Dwt952 FREE T4 1.83 ng/dL 06/08/2015 Tsh Ord6 hTSH II 1.03 uIU/mL 04/01/2015 Free T4 Ttw634 FREE T4 2.01 ng/dL 04/01/2015 %Hba1C Yct384 % HbA1c 60766-4 5.7 % 12/19/2014 %Hba1C Yiy352 Gluc Ave 117 mg/dL 12/19/2014 Tsh Ord6 hTSH II 1.50 uIU/mL 12/19/2014 Microalbumin Fuj398 MicroAlb 0.2 mg/dL 12/19/2014 Cbc With Differential Ord2 WBC 6.1 K/uL 12/19/2014 Cbc With Differential Ord2 LYM 2.0 K/uL 12/19/2014 Cbc With Differential Ord2 LYM% 32.5 % 12/19/2014 Cbc With Differential Ord2 NEUT/GRAN 3.8 K/uL 12/19/2014 Cbc With Differential Ord2 NEUT/GRAN % 62.5 % 12/19/2014 Cbc With Differential Ord2 MID 0.3 K/uL 12/19/2014 Cbc With Differential Ord2 MID% 5.0 % 12/19/2014 Cbc With Differential Ord2 RBC 4.50 M/uL 12/19/2014 Cbc With Differential Ord2 HGB 13.0 g/dL 12/19/2014 Cbc With Differential Ord2 HCT 41.5 % 12/19/2014 Cbc With Differential Ord2 MCV 92 fL 12/19/2014 Cbc With Differential Ord2 MCH 29 pg 12/19/2014 Cbc With Differential Ord2 MCHC 31 g/dL 12/19/2014 Cbc With Differential Ord2 PLT 227 K/uL 12/19/2014 Cbc With Differential Ord2 RDW 15.7 % 12/19/2014 Comp Metabolic Vqa528 NA 138 mEq/L 12/19/2014 Comp Metabolic Non273 K 4.0 mEq/L 12/19/2014 Comp Metabolic Acb409 CL 103 mEq/L 12/19/2014 Comp Metabolic Nrl530 CO2 27.0 mEq/L 12/19/2014 Comp Metabolic Wfh561 ANION GAP 12 12/19/2014 Comp Metabolic Iel450 GLUCOSE 85 mg/dL 12/19/2014 Comp Metabolic Jtt507 Creat 0.4 mg/dL 12/19/2014 Comp Metabolic Vvx214 eGFR 148 ml/min/1.73m2 12/19/2014 Comp Metabolic Raa865 BUN 9 mg/dL 12/19/2014 Comp Metabolic Hmp370 B/C Ratio 20.5 Ratio 12/19/2014 Comp Metabolic Osk824 CALCIUM 10.2 mg/dL 12/19/2014 Comp Metabolic Csi508 ALK PHOS 127 U/L 12/19/2014 Comp Metabolic Xps676 AST(SGOT) 16 U/L 12/19/2014 Comp Metabolic Rrh297 ALT(SGPT) 13 U/L 12/19/2014 Comp Metabolic Cip327 BILI T 0.8 mg/dL 12/19/2014 Comp Metabolic Ffw048 ALBUMIN 4.0 g/dL 12/19/2014 Comp Metabolic Pjw138 TPRO 7.3 g/dL 12/19/2014 Comp Metabolic Eum309 GLOB 3.3 g/dL 12/19/2014 Comp Metabolic Pvk550 A/G Ratio 1.2 Ratio 12/19/2014 Comp Metabolic Fsh605 Osmo 274 mOsmo 12/19/2014 Lipid Ord30 CHOL 209 mg/dL 12/19/2014 Lipid Ord30 HDL 59.0 mg/dl 12/19/2014 Lipid Ord30 TRIG 61 mg/dL 12/19/2014 Lipid Ord30 LDL 138 mg/dL 12/19/2014 Lipid Ord30 C/HDL 3.5 Ratio 12/19/2014 Free T4 Yai973 FREE T4 1.65 ng/dL 12/19/2014 Review of Systems System Result Effective Dates Constitutional No recent illness 2016 Constitutional No anorexia 12/15/2016 Constitutional No night sweats 2016 Constitutional No chills 12/15/2016 Constitutional No diaphoresis 12/15/2016 Constitutional fatigue 12/15/2016 Constitutional No fever 12/15/2016 Constitutional No insomnia 12/15/2016 Constitutional No malaise 12/15/2016 Eyes No eye discharge 12/15/2016 Eyes No eye erythema 12/15/2016 Ears/Nose/Throat/Neck No dizziness 2016 Ears/Nose/Throat/Neck No headache 2016 Cardiovascular No chest pain/pressure 02/2017 Cardiovascular No dyspnea 12/15/2016 Cardiovascular No edema 12/15/2016 Respiratory No cough 12/15/2016 Gastrointestinal No abdominal pain 2016 Gastrointestinal No constipation 2016 Gastrointestinal No diarrhea 12/15/2016 Genitourinary/Nephrology No dysuria 12/15 Genitourinary/Nephrology urinary incontinence 12/15/2016 Musculoskeletal arthralgia(s) 12/15/2016 Musculoskeletal joint complaint 2016 Dermatologic No rash 12/15/2016 Dermatologic No sores 12/15/2016 Neurologic No alteration of consciousness 12/15/2016 Psychiatric No anxiety 12/15/2016 Psychiatric No depression 12/15/2016 Constitutional No recent illness 2016 Constitutional No anorexia 08/18/2016 Constitutional No night sweats 2016 Constitutional No chills 08/18/2016 Constitutional No diaphoresis 08/18/2016 Constitutional fatigue 08/18/2016 Constitutional No fever 08/18/2016 Constitutional No insomnia 08/18/2016 Constitutional No malaise 08/18/2016 Eyes No eye discharge 08/18/2016 Eyes No eye erythema 08/18/2016 Ears/Nose/Throat/Neck No dizziness 2016 Ears/Nose/Throat/Neck No headache 2016 Cardiovascular No chest pain/pressure Cardiovascular No dyspnea 08/18/2016 Cardiovascular No edema 08/18/2016 Respiratory No cough 08/18/2016 Gastrointestinal No abdominal pain 2016 Gastrointestinal No constipation 2016 Gastrointestinal No diarrhea 08/18/2016 Genitourinary/Nephrology No dysuria 08/18 Genitourinary/Nephrology urinary incontinence 08/18/2016 Musculoskeletal arthralgia(s) 08/18/2016 Musculoskeletal joint complaint 2016 Dermatologic No rash 08/18/2016 Dermatologic No sores 08/18/2016 Neurologic No alteration of consciousness 08/18/2016 Psychiatric No anxiety 08/18/2016 Psychiatric No depression 08/18/2016 Constitutional No recent illness 2016 Constitutional No anorexia 08/02/2016 Constitutional No night sweats 2016 Constitutional No chills 08/02/2016 Constitutional No diaphoresis 08/02/2016 Constitutional fatigue 08/02/2016 Constitutional No fever 08/02/2016 Constitutional No insomnia 08/02/2016 Constitutional malaise 08/02/2016 Eyes No eye discharge 08/02/2016 Eyes No eye erythema 08/02/2016 Ears/Nose/Throat/Neck No dizziness 2016 Ears/Nose/Throat/Neck No headache 2016 Cardiovascular No chest pain/pressure Cardiovascular dyspnea 08/02/2016 Cardiovascular No edema 08/02/2016 Respiratory No cough 08/02/2016 Gastrointestinal No abdominal pain 2016 Gastrointestinal No constipation 2016 Gastrointestinal No diarrhea 08/02/2016 Genitourinary/Nephrology No dysuria 08/02 Genitourinary/Nephrology urinary incontinence 08/02/2016 Musculoskeletal arthralgia(s) 08/02/2016 Musculoskeletal joint complaint 2016 Dermatologic No rash 08/02/2016 Dermatologic No sores 08/02/2016 Neurologic No alteration of consciousness 08/02/2016 Psychiatric No anxiety 08/02/2016 Psychiatric No depression 08/02/2016 Constitutional No recent illness 2015 Constitutional No anorexia 04/04/2016 Constitutional No night sweats 2015 Constitutional No chills 04/04/2016 Constitutional No diaphoresis 04/04/2016 Constitutional No fatigue 04/04/2016 Constitutional No fever 04/04/2016 Constitutional No insomnia 04/04/2016 Constitutional No malaise 04/04/2016 Eyes No eye discharge 04/04/2016 Eyes No eye erythema 04/04/2016 Ears/Nose/Throat/Neck No dizziness 2015 Ears/Nose/Throat/Neck No headache 2015 Cardiovascular No chest pain/pressure Cardiovascular No dyspnea 04/04/2016 Cardiovascular No edema 04/04/2016 Respiratory No cough 04/04/2016 Gastrointestinal No abdominal pain 2015 Gastrointestinal No constipation 2015 Gastrointestinal No diarrhea 04/04/2016 Genitourinary/Nephrology No dysuria 04/04 Genitourinary/Nephrology urinary incontinence 04/04/2016 Musculoskeletal arthralgia(s) 04/04/2016 Musculoskeletal joint complaint 2015 Dermatologic No rash 04/04/2016 Dermatologic No sores 04/04/2016 Neurologic No alteration of consciousness 04/04/2016 Psychiatric No anxiety 04/04/2016 Psychiatric No depression 04/04/2016 Constitutional No recent illness 2015 Constitutional No anorexia 11/12/2015 Constitutional No night sweats 2015 Constitutional No chills 11/12/2015 Constitutional No diaphoresis 11/12/2015 Constitutional No fatigue 11/12/2015 Constitutional No fever 11/12/2015 Constitutional No insomnia 11/12/2015 Constitutional No malaise 11/12/2015 Eyes No eye discharge 11/12/2015 Eyes No eye erythema 11/12/2015 Ears/Nose/Throat/Neck No dizziness 2015 Ears/Nose/Throat/Neck No headache 2015 Cardiovascular No chest pain/pressure 11/2015 Cardiovascular No dyspnea 11/12/2015 Cardiovascular No edema 11/12/2015 Respiratory No cough 11/12/2015 Gastrointestinal No abdominal pain 2015 Gastrointestinal No constipation 2015 Gastrointestinal No diarrhea 11/12/2015 Genitourinary/Nephrology No dysuria 11/11 Genitourinary/Nephrology urinary incontinence 11/12/2015 Musculoskeletal arthralgia(s) 11/12/2015 Musculoskeletal joint complaint 2015 Dermatologic No rash 11/12/2015 Dermatologic No sores 11/12/2015 Neurologic No alteration of consciousness 11/12/2015 Constitutional No recent illness 2015 Constitutional No anorexia 06/08/2015 Constitutional No night sweats 2015 Constitutional No chills 06/08/2015 Constitutional No diaphoresis 06/08/2015 Constitutional No fatigue 06/08/2015 Constitutional No fever 06/08/2015 Constitutional No insomnia 06/08/2015 Constitutional No malaise 06/08/2015 Constitutional weight loss 06/08/2015 Constitutional No weight gain 06/08/2015 Musculoskeletal joint complaint 2015 Dermatologic No rash 06/08/2015 Dermatologic No sores 06/08/2015 Musculoskeletal arthralgia(s) 06/08/2015 Eyes No eye discharge 06/08/2015 Eyes No eye erythema 06/08/2015 Ears/Nose/Throat/Neck No dizziness 2015 Ears/Nose/Throat/Neck No headache 2015 Cardiovascular No chest pain/pressure 05/2015 Cardiovascular No dyspnea 06/08/2015 Cardiovascular No edema 06/08/2015 Respiratory No cough 06/08/2015 Gastrointestinal No abdominal pain 2015 Gastrointestinal No constipation 2015 Gastrointestinal No diarrhea 06/08/2015 Genitourinary/Nephrology No dysuria 06/08 Neurologic No alteration of consciousness 06/08/2015 Genitourinary/Nephrology urinary incontinence 06/08/2015 Endocrine No dry or coarse skin 2015 Cardiovascular fatigue 12/19/2014 Cardiovascular dyspnea 12/19/2014 Respiratory dyspnea on exertion 2014 Musculoskeletal bone pain 12/19/2014 Musculoskeletal arthralgia(s) 12/19/2014 Constitutional No recent illness 2014 Constitutional No anorexia 12/19/2014 Constitutional No night sweats 2014 Constitutional No chills 12/19/2014 Constitutional No diaphoresis 12/19/2014 Constitutional No fever 12/19/2014 Constitutional No insomnia 12/19/2014 Constitutional No malaise 12/19/2014 Constitutional No weight loss 12/19/2014 Constitutional weight gain 12/19/2014 Eyes No eye discharge 12/19/2014 Eyes No eye erythema 12/19/2014 Ears/Nose/Throat/Neck No dizziness 2014 Ears/Nose/Throat/Neck No headache 2014 Ears/Nose/Throat/Neck nasal allergies Cardiovascular No chest pain/pressure Cardiovascular edema 12/19/2014 Respiratory No productive sputum 2014 Respiratory No cough 12/19/2014 Gastrointestinal No abdominal pain 2014 Gastrointestinal No constipation 2014 Gastrointestinal No diarrhea 12/19/2014 Genitourinary/Nephrology No dysuria 12/19 Musculoskeletal joint complaint 2014 Dermatologic No rash 12/19/2014 Neurologic No alteration of consciousness 12/19/2014 Psychiatric No anxiety 12/19/2014 Psychiatric No depression 12/19/2014 Endocrine No dry or coarse skin 2014 Hematologic/Lymphatic No abnormal bleeding and bruising 12/19/2014 Cardiovascular No chest pain/pressure Cardiovascular edema 10/28/2014 Respiratory No productive sputum 2014 Respiratory No cough 10/28/2014 Respiratory dyspnea on exertion 2014 Constitutional No recent illness 2014 Constitutional No anorexia 10/28/2014 Constitutional No night sweats 2014 Constitutional No chills 10/28/2014 Constitutional No diaphoresis 10/28/2014 Constitutional No fatigue 10/28/2014 Constitutional No fever 10/28/2014 Constitutional No insomnia 10/28/2014 Constitutional No malaise 10/28/2014 Constitutional No weight loss 10/28/2014 Constitutional weight gain 10/28/2014 Eyes No eye discharge 10/28/2014 Eyes No eye erythema 10/28/2014 Ears/Nose/Throat/Neck No dizziness 2014 Ears/Nose/Throat/Neck No headache 2014 Ears/Nose/Throat/Neck nasal allergies Gastrointestinal No abdominal pain 2014 Gastrointestinal No constipation 2014 Gastrointestinal No diarrhea 10/28/2014 Genitourinary/Nephrology No dysuria 10/28 Musculoskeletal joint complaint 2014 Dermatologic No rash 10/28/2014 Neurologic No alteration of consciousness 10/28/2014 Psychiatric No depression 10/28/2014 Psychiatric No anxiety 10/28/2014 Endocrine No dry or coarse skin 2014 Hematologic/Lymphatic No abnormal bleeding and bruising 10/28/2014 Physical Exam Exam Name System Name Item Name Status Result Effective Dates Notes Full Exam - General 1994 Constitutional general appearance Overall: well developed 12/15/2016 None Full Exam - General 1994 Constitutional general appearance Overall: in no acute distress 12/15/2016 None Full Exam - General 1994 Constitutional general appearance Overall: well nourished 12/15/2016 None Full Exam - General 1994 Constitutional general appearance Nourishment: obese 12/15/2016 None Full Exam - General 1994 Constitutional general appearance Assistive Device: wheelchair 12/15/2016 None Full Exam - General 1994 Eyes conjunctiva /eyelids Overall: conjunctiva clear 12/15/2016 None Full Exam - General 1994 Eyes conjunctiva /eyelids Overall: cornea clear 12/15/2016 None Full Exam - General 1994 Eyes conjunctiva /eyelids Overall: eyelids normal 12/15/2016 None Full Exam - General 1994 Eyes pupils and irises Overall: pupils equal, round, reactive to light and accomodation 12/15/2016 None Full Exam - General 1994 Ears/Nose/Throat otoscopic exam Overall: external auditory canals clear 12/15/2016 None Full Exam - General 1994 Ears/Nose/Throat otoscopic exam Overall: tympanic membranes clear 12/15/2016 None Full Exam - General 1994 Ears/Nose/Throat oral cavity/pharynx/larynx Overall: oral mucosa clear 12/15/2016 None Full Exam - General 1994 Ears/Nose/Throat oral cavity/pharynx/larynx Overall: oropharyngeal mucosa clear 12/15/2016 None Full Exam - General 1994 Ears/Nose/Throat oral cavity/pharynx/larynx Overall: no masses 12/15/2016 None Full Exam - General 1994 Respiratory auscultation Overall: breath sounds clear bilaterally 12/15/2016 None Full Exam - General 1994 Respiratory respiratory effort/rhythm Overall: no retractions 12/15/2016 None Full Exam - General 1994 Respiratory respiratory effort/rhythm Overall: normal rate 12/15/2016 None Full Exam - General 1994 Cardiovascular extremities Edema present: pitting 12/15/2016 None Full Exam - General 1994 Cardiovascular extremities Edema present: bilateral 12/15/2016 None Full Exam - General 1994 Cardiovascular auscultation of heart Overall: regular rate 12/15/2016 None Full Exam - General 1994 Cardiovascular auscultation of heart Overall: normal heart sounds 12/15/2016 None Full Exam - General 1994 Abdomen abdominal exam Overall: no tenderness 12/15/2016 None Full Exam - General 1994 Abdomen abdominal exam Overall: normal bowel sounds 12/15/2016 None Full Exam - General 1994 Musculoskeletal spine, ribs and pelvis Palpation: tender at greater trochanter 12/15/2016 None Full Exam - General 1994 Musculoskeletal head and neck Overall: head atraumatic 12/15/2016 None Full Exam - General 1994 Integument inspection of skin Overall: no rash, lesions 12/15/2016 None Full Exam - General 1994 Neurologic cranial nerves Overall: crainial nerves 2 - 12 grossly intact 12/15/2016 None Full Exam - General 1994 Psychiatric orientation/consciousness Overall: oriented to person, place and time 12/15/2016 None Full Exam - General 1994 Constitutional general appearance Overall: well developed 08/18/2016 None Full Exam - General 1994 Constitutional general appearance Overall: in no acute distress 08/18/2016 None Full Exam - General 1994 Constitutional general appearance Overall: well nourished 08/18/2016 None Full Exam - General 1994 Constitutional general appearance Nourishment: obese 08/18/2016 None Full Exam - General 1994 Constitutional general appearance Assistive Device: wheelchair 08/18/2016 None Full Exam - General 1994 Eyes conjunctiva /eyelids Overall: conjunctiva clear 08/18/2016 None Full Exam - General 1994 Eyes conjunctiva /eyelids Overall: cornea clear 08/18/2016 None Full Exam - General 1994 Eyes conjunctiva /eyelids Overall: eyelids normal 08/18/2016 None Full Exam - General 1994 Eyes pupils and irises Overall: pupils equal, round, reactive to light and accomodation 08/18/2016 None Full Exam - General 1994 Ears/Nose/Throat otoscopic exam Overall: external auditory canals clear 08/18/2016 None Full Exam - General 1994 Ears/Nose/Throat otoscopic exam Overall: tympanic membranes clear 08/18/2016 None Full Exam - General 1994 Ears/Nose/Throat oral cavity/pharynx/larynx Overall: oral mucosa clear 08/18/2016 None Full Exam - General 1994 Ears/Nose/Throat oral cavity/pharynx/larynx Overall: oropharyngeal mucosa clear 08/18/2016 None Full Exam - General 1994 Ears/Nose/Throat oral cavity/pharynx/larynx Overall: no masses 08/18/2016 None Full Exam - General 1994 Respiratory auscultation Overall: breath sounds clear bilaterally 08/18/2016 None Full Exam - General 1994 Respiratory respiratory effort/rhythm Overall: no retractions 08/18/2016 None Full Exam - General 1994 Respiratory respiratory effort/rhythm Overall: normal rate 08/18/2016 None Full Exam - General 1994 Cardiovascular extremities Edema present: pitting 08/18/2016 None Full Exam - General 1994 Cardiovascular extremities Edema present: bilateral 08/18/2016 None Full Exam - General 1994 Cardiovascular auscultation of heart Overall: regular rate 08/18/2016 None Full Exam - General 1994 Cardiovascular auscultation of heart Overall: normal heart sounds 08/18/2016 None Full Exam - General 1994 Abdomen abdominal exam Overall: no tenderness 08/18/2016 None Full Exam - General 1994 Abdomen abdominal exam Overall: normal bowel sounds 08/18/2016 None Full Exam - General 1994 Musculoskeletal spine, ribs and pelvis Palpation: tender at greater trochanter 08/18/2016 None Full Exam - General 1994 Musculoskeletal head and neck Overall: head atraumatic 08/18/2016 None Full Exam - General 1994 Integument inspection of skin Overall: no rash, lesions 08/18/2016 None Full Exam - General 1994 Neurologic cranial nerves Overall: crainial nerves 2 - 12 grossly intact 08/18/2016 None Full Exam - General 1994 Psychiatric orientation/consciousness Overall: oriented to person, place and time 08/18/2016 None Full Exam - General 1994 Constitutional general appearance Overall: well developed 08/02/2016 None Full Exam - General 1994 Constitutional general appearance Overall: in no acute distress 08/02/2016 None Full Exam - General 1994 Constitutional general appearance Overall: well nourished 08/02/2016 None Full Exam - General 1994 Constitutional general appearance Nourishment: obese 08/02/2016 None Full Exam - General 1994 Constitutional general appearance Assistive Device: wheelchair 08/02/2016 None Full Exam - General 1994 Eyes conjunctiva /eyelids Overall: conjunctiva clear 08/02/2016 None Full Exam - General 1994 Eyes conjunctiva /eyelids Overall: cornea clear 08/02/2016 None Full Exam - General 1994 Eyes conjunctiva /eyelids Overall: eyelids normal 08/02/2016 None Full Exam - General 1994 Eyes pupils and irises Overall: pupils equal, round, reactive to light and accomodation 08/02/2016 None Full Exam - General 1994 Ears/Nose/Throat otoscopic exam Overall: external auditory canals clear 08/02/2016 None Full Exam - General 1994 Ears/Nose/Throat otoscopic exam Overall: tympanic membranes clear 08/02/2016 None Full Exam - General 1994 Ears/Nose/Throat oral cavity/pharynx/larynx Overall: oral mucosa clear 08/02/2016 None Full Exam - General 1994 Ears/Nose/Throat oral cavity/pharynx/larynx Overall: oropharyngeal mucosa clear 08/02/2016 None Full Exam - General 1994 Ears/Nose/Throat oral cavity/pharynx/larynx Overall: no masses 08/02/2016 None Full Exam - General 1994 Respiratory auscultation Overall: breath sounds clear bilaterally 08/02/2016 None Full Exam - General 1994 Respiratory respiratory effort/rhythm Overall: no retractions 08/02/2016 None Full Exam - General 1994 Respiratory respiratory effort/rhythm Overall: normal rate 08/02/2016 None Full Exam - General 1994 Cardiovascular extremities Edema present: pitting 08/02/2016 None Full Exam - General 1994 Cardiovascular extremities Edema present: bilateral 08/02/2016 None Full Exam - General 1994 Cardiovascular auscultation of heart Overall: regular rate 08/02/2016 None Full Exam - General 1994 Cardiovascular auscultation of heart Overall: normal heart sounds 08/02/2016 None Full Exam - General 1994 Abdomen abdominal exam Overall: no tenderness 08/02/2016 None Full Exam - General 1994 Abdomen abdominal exam Overall: normal bowel sounds 08/02/2016 None Full Exam - General 1994 Musculoskeletal spine, ribs and pelvis Palpation: tender at greater trochanter 08/02/2016 None Full Exam - General 1994 Musculoskeletal head and neck Overall: head atraumatic 08/02/2016 None Full Exam - General 1994 Integument inspection of skin Overall: no rash, lesions 08/02/2016 None Full Exam - General 1994 Neurologic cranial nerves Overall: crainial nerves 2 - 12 grossly intact 08/02/2016 None Full Exam - General 1994 Psychiatric orientation/consciousness Overall: oriented to person, place and time 08/02/2016 None Full Exam - General 1994 Constitutional general appearance Overall: well developed 04/04/2016 None Full Exam - General 1994 Constitutional general appearance Overall: in no acute distress 04/04/2016 None Full Exam - General 1994 Constitutional general appearance Overall: well nourished 04/04/2016 None Full Exam - General 1994 Constitutional general appearance Nourishment: obese 04/04/2016 None Full Exam - General 1994 Constitutional general appearance Assistive Device: wheelchair 04/04/2016 None Full Exam - General 1994 Eyes conjunctiva /eyelids Overall: conjunctiva clear 04/04/2016 None Full Exam - General 1994 Eyes conjunctiva /eyelids Overall: cornea clear 04/04/2016 None Full Exam - General 1994 Eyes conjunctiva /eyelids Overall: eyelids normal 04/04/2016 None Full Exam - General 1994 Eyes pupils and irises Overall: pupils equal, round, reactive to light and accomodation 04/04/2016 None Full Exam - General 1994 Ears/Nose/Throat otoscopic exam Overall: external auditory canals clear 04/04/2016 None Full Exam - General 1994 Ears/Nose/Throat otoscopic exam Overall: tympanic membranes clear 04/04/2016 None Full Exam - General 1994 Ears/Nose/Throat oral cavity/pharynx/larynx Overall: oral mucosa clear 04/04/2016 None Full Exam - General 1994 Ears/Nose/Throat oral cavity/pharynx/larynx Overall: oropharyngeal mucosa clear 04/04/2016 None Full Exam - General 1994 Ears/Nose/Throat oral cavity/pharynx/larynx Overall: no masses 04/04/2016 None Full Exam - General 1994 Respiratory auscultation Overall: breath sounds clear bilaterally 04/04/2016 None Full Exam - General 1994 Respiratory respiratory effort/rhythm Overall: no retractions 04/04/2016 None Full Exam - General 1994 Respiratory respiratory effort/rhythm Overall: normal rate 04/04/2016 None Full Exam - General 1994 Cardiovascular extremities Edema present: pitting 04/04/2016 None Full Exam - General 1994 Cardiovascular extremities Edema present: bilateral 04/04/2016 None Full Exam - General 1994 Cardiovascular auscultation of heart Overall: regular rate 04/04/2016 None Full Exam - General 1994 Cardiovascular auscultation of heart Overall: normal heart sounds 04/04/2016 None Full Exam - General 1994 Abdomen abdominal exam Overall: no tenderness 04/04/2016 None Full Exam - General 1994 Abdomen abdominal exam Overall: normal bowel sounds 04/04/2016 None Full Exam - General 1994 Musculoskeletal spine, ribs and pelvis Palpation: tender at greater trochanter 04/04/2016 None Full Exam - General 1994 Musculoskeletal head and neck Overall: head atraumatic 04/04/2016 None Full Exam - General 1994 Integument inspection of skin Overall: no rash, lesions 04/04/2016 None Full Exam - General 1994 Neurologic cranial nerves Overall: crainial nerves 2 - 12 grossly intact 04/04/2016 None Full Exam - General 1994 Psychiatric orientation/consciousness Overall: oriented to person, place and time 04/04/2016 None Full Exam - General 1994 Constitutional general appearance Overall: well developed 11/12/2015 None Full Exam - General 1994 Constitutional general appearance Overall: in no acute distress 11/12/2015 None Full Exam - General 1994 Constitutional general appearance Overall: well nourished 11/12/2015 None Full Exam - General 1994 Constitutional general appearance Nourishment: obese 11/12/2015 None Full Exam - General 1994 Constitutional general appearance Assistive Device: wheelchair 11/12/2015 None Full Exam - General 1994 Eyes conjunctiva /eyelids Overall: conjunctiva clear 11/12/2015 None Full Exam - General 1994 Eyes conjunctiva /eyelids Overall: cornea clear 11/12/2015 None Full Exam - General 1994 Eyes conjunctiva /eyelids Overall: eyelids normal 11/12/2015 None Full Exam - General 1994 Eyes pupils and irises Overall: pupils equal, round, reactive to light and accomodation 11/12/2015 None Full Exam - General 1994 Ears/Nose/Throat otoscopic exam Overall: external auditory canals clear 11/12/2015 None Full Exam - General 1994 Ears/Nose/Throat otoscopic exam Overall: tympanic membranes clear 11/12/2015 None Full Exam - General 1994 Ears/Nose/Throat oral cavity/pharynx/larynx Overall: oral mucosa clear 11/12/2015 None Full Exam - General 1994 Ears/Nose/Throat oral cavity/pharynx/larynx Overall: oropharyngeal mucosa clear 11/12/2015 None Full Exam - General 1994 Ears/Nose/Throat oral cavity/pharynx/larynx Overall: no masses 11/12/2015 None Full Exam - General 1994 Respiratory auscultation Overall: breath sounds clear bilaterally 11/12/2015 None Full Exam - General 1994 Respiratory respiratory effort/rhythm Overall: no retractions 11/12/2015 None Full Exam - General 1994 Respiratory respiratory effort/rhythm Overall: normal rate 11/12/2015 None Full Exam - General 1994 Cardiovascular extremities Edema present: pitting 11/12/2015 None Full Exam - General 1994 Cardiovascular extremities Edema present: bilateral 11/12/2015 None Full Exam - General 1994 Cardiovascular auscultation of heart Overall: regular rate 11/12/2015 None Full Exam - General 1994 Cardiovascular auscultation of heart Overall: normal heart sounds 11/12/2015 None Full Exam - General 1994 Abdomen abdominal exam Overall: no tenderness 11/12/2015 None Full Exam - General 1994 Abdomen abdominal exam Overall: normal bowel sounds 11/12/2015 None Full Exam - General 1994 Musculoskeletal spine, ribs and pelvis Palpation: tender at greater trochanter 11/12/2015 None Full Exam - General 1994 Musculoskeletal head and neck Overall: head atraumatic 11/12/2015 None Full Exam - General 1994 Integument inspection of skin Overall: no rash, lesions 11/12/2015 None Full Exam - General 1994 Neurologic cranial nerves Overall: crainial nerves 2 - 12 grossly intact 11/12/2015 None Full Exam - General 1994 Psychiatric orientation/consciousness Overall: oriented to person, place and time 11/12/2015 None Full Exam - General 1994 Constitutional general appearance Overall: well developed 06/08/2015 None Full Exam - General 1994 Constitutional general appearance Overall: in no acute distress 06/08/2015 None Full Exam - General 1994 Constitutional general appearance Overall: well nourished 06/08/2015 None Full Exam - General 1994 Eyes conjunctiva /eyelids Overall: conjunctiva clear 06/08/2015 None Full Exam - General 1994 Eyes conjunctiva /eyelids Overall: cornea clear 06/08/2015 None Full Exam - General 1994 Eyes conjunctiva /eyelids Overall: eyelids normal 06/08/2015 None Full Exam - General 1994 Eyes pupils and irises Overall: pupils equal, round, reactive to light and accomodation 06/08/2015 None Full Exam - General 1994 Ears/Nose/Throat otoscopic exam Overall: external auditory canals clear 06/08/2015 None Full Exam - General 1994 Ears/Nose/Throat otoscopic exam Overall: tympanic membranes clear 06/08/2015 None Full Exam - General 1994 Ears/Nose/Throat oral cavity/pharynx/larynx Overall: oral mucosa clear 06/08/2015 None Full Exam - General 1994 Ears/Nose/Throat oral cavity/pharynx/larynx Overall: oropharyngeal mucosa clear 06/08/2015 None Full Exam - General 1994 Ears/Nose/Throat oral cavity/pharynx/larynx Overall: no masses 06/08/2015 None Full Exam - General 1994 Respiratory auscultation Overall: breath sounds clear bilaterally 06/08/2015 None Full Exam - General 1994 Respiratory respiratory effort/rhythm Overall: no retractions 06/08/2015 None Full Exam - General 1994 Respiratory respiratory effort/rhythm Overall: normal rate 06/08/2015 None Full Exam - General 1994 Cardiovascular extremities Edema present: pitting 06/08/2015 None Full Exam - General 1994 Cardiovascular extremities Edema present: bilateral 06/08/2015 None Full Exam - General 1994 Cardiovascular auscultation of heart Overall: regular rate 06/08/2015 None Full Exam - General 1994 Cardiovascular auscultation of heart Overall: normal heart sounds 06/08/2015 None Full Exam - General 1994 Abdomen abdominal exam Overall: no tenderness 06/08/2015 None Full Exam - General 1994 Abdomen abdominal exam Overall: normal bowel sounds 06/08/2015 None Full Exam - General 1994 Musculoskeletal head and neck Overall: head atraumatic 06/08/2015 None Full Exam - General 1994 Integument inspection of skin Overall: no rash, lesions 06/08/2015 None Full Exam - General 1994 Neurologic cranial nerves Overall: crainial nerves 2 - 12 grossly intact 06/08/2015 None Full Exam - General 1994 Psychiatric orientation/consciousness Overall: oriented to person, place and time 06/08/2015 None Full Exam - General 1994 Constitutional general appearance Nourishment: obese 06/08/2015 None Full Exam - General 1994 Constitutional general appearance Assistive Device: wheelchair 06/08/2015 None Full Exam - General 1994 Musculoskeletal spine, ribs and pelvis Palpation: tender at greater trochanter 06/08/2015 None Full Exam - General 1994 Constitutional general appearance Overall: well developed 12/19/2014 None Full Exam - General 1994 Constitutional general appearance Overall: in no acute distress 12/19/2014 None Full Exam - General 1994 Constitutional general appearance Overall: well nourished 12/19/2014 None Full Exam - General 1994 Eyes conjunctiva /eyelids Overall: conjunctiva clear 12/19/2014 None Full Exam - General 1994 Eyes conjunctiva /eyelids Overall: cornea clear 12/19/2014 None Full Exam - General 1994 Eyes conjunctiva /eyelids Overall: eyelids normal 12/19/2014 None Full Exam - General 1994 Eyes pupils and irises Overall: pupils equal, round, reactive to light and accomodation 12/19/2014 None Full Exam - General 1994 Ears/Nose/Throat otoscopic exam Overall: external auditory canals clear 12/19/2014 None Full Exam - General 1994 Ears/Nose/Throat otoscopic exam Overall: tympanic membranes clear 12/19/2014 None Full Exam - General 1994 Ears/Nose/Throat oral cavity/pharynx/larynx Overall: oral mucosa clear 12/19/2014 None Full Exam - General 1994 Ears/Nose/Throat oral cavity/pharynx/larynx Overall: oropharyngeal mucosa clear 12/19/2014 None Full Exam - General 1994 Ears/Nose/Throat oral cavity/pharynx/larynx Overall: no masses 12/19/2014 None Full Exam - General 1994 Respiratory auscultation Overall: breath sounds clear bilaterally 12/19/2014 None Full Exam - General 1994 Respiratory respiratory effort/rhythm Overall: no retractions 12/19/2014 None Full Exam - General 1994 Respiratory respiratory effort/rhythm Overall: normal rate 12/19/2014 None Full Exam - General 1994 Cardiovascular extremities Edema present: pitting 12/19/2014 None Full Exam - General 1994 Cardiovascular extremities Edema present: bilateral 12/19/2014 None Full Exam - General 1994 Cardiovascular auscultation of heart Overall: regular rate 12/19/2014 None Full Exam - General 1994 Cardiovascular auscultation of heart Overall: normal heart sounds 12/19/2014 None Full Exam - General 1994 Abdomen abdominal exam Overall: no tenderness 12/19/2014 None Full Exam - General 1994 Abdomen abdominal exam Overall: normal bowel sounds 12/19/2014 None Full Exam - General 1994 Musculoskeletal gait and station Gait: asymmetric 12/19/2014 None Full Exam - General 1994 Musculoskeletal head and neck Overall: head atraumatic 12/19/2014 None Full Exam - General 1994 Integument inspection of skin Overall: no rash, lesions 12/19/2014 None Full Exam - General 1994 Neurologic cranial nerves Overall: crainial nerves 2 - 12 grossly intact 12/19/2014 None Full Exam - General 1994 Psychiatric orientation/consciousness Overall: oriented to person, place and time 12/19/2014 None Full Exam - General 1994 Constitutional general appearance Overall: well developed 10/28/2014 None Full Exam - General 1994 Constitutional general appearance Overall: in no acute distress 10/28/2014 None Full Exam - General 1994 Constitutional general appearance Overall: well nourished 10/28/2014 None Full Exam - General 1994 Psychiatric orientation/consciousness Overall: oriented to person, place and time 10/28/2014 None Full Exam - General 1994 Neurologic cranial nerves Overall: crainial nerves 2 - 12 grossly intact 10/28/2014 None Full Exam - General 1994 Integument inspection of skin Overall: no rash, lesions 10/28/2014 None Full Exam - General 1994 Musculoskeletal gait and station Gait: asymmetric 10/28/2014 None Full Exam - General 1994 Musculoskeletal head and neck Overall: head atraumatic 10/28/2014 None Full Exam - General 1994 Abdomen abdominal exam Overall: no tenderness 10/28/2014 None Full Exam - General 1994 Abdomen abdominal exam Overall: normal bowel sounds 10/28/2014 None Full Exam - General 1994 Cardiovascular auscultation of heart Overall: regular rate 10/28/2014 None Full Exam - General 1994 Cardiovascular auscultation of heart Overall: normal heart sounds 10/28/2014 None Full Exam - General 1994 Cardiovascular extremities Edema present: pitting 10/28/2014 None Full Exam - General 1994 Cardiovascular extremities Edema present: bilateral 10/28/2014 None Full Exam - General 1994 Respiratory auscultation Overall: breath sounds clear bilaterally 10/28/2014 None Full Exam - General 1994 Respiratory respiratory effort/rhythm Overall: normal rate 10/28/2014 None Full Exam - General 1994 Respiratory respiratory effort/rhythm Overall: no retractions 10/28/2014 None Full Exam - General 1994 Ears/Nose/Throat otoscopic exam Overall: tympanic membranes clear 10/28/2014 None Full Exam - General 1994 Ears/Nose/Throat otoscopic exam Overall: external auditory canals clear 10/28/2014 None Full Exam - General 1994 Ears/Nose/Throat oral cavity/pharynx/larynx Overall: oropharyngeal mucosa clear 10/28/2014 None Full Exam - General 1994 Ears/Nose/Throat oral cavity/pharynx/larynx Overall: no masses 10/28/2014 None Full Exam - General 1994 Ears/Nose/Throat oral cavity/pharynx/larynx Overall: oral mucosa clear 10/28/2014 None Full Exam - General 1994 Eyes conjunctiva /eyelids Overall: conjunctiva clear 10/28/2014 None Full Exam - General 1994 Eyes conjunctiva /eyelids Overall: eyelids normal 10/28/2014 None Full Exam - General 1994 Eyes conjunctiva /eyelids Overall: cornea clear 10/28/2014 None Full Exam - General 1994 Eyes pupils and irises Overall: pupils equal, round, reactive to light and accomodation 10/28/2014 None Procedures No Procedures data Vital Signs Date Vital 12/15/2016 Blood Pressure 1: 138/68 Code : 8480-6 BMI: 37.4 Code : 98678-7 Heart Rate 1 : 74 bpm Height: 5'3" SpO2: 99% Weight: 211 lbs 08/18/2016 Blood Pressure 1: 142/70 Code : 8480-6 BMI: 36.8 Code : 42225-1 Heart Rate 1 : 56 bpm Height: 5'3" Weight: 208 lbs 08/02/2016 Blood Pressure 1: 134/68 Code : 8480-6 BMI: 38.1 Code : 23988-3 Heart Rate 1 : 48 bpm Height: 5'3" Weight: 215 lbs 04/04/2016 Blood Pressure 1: 138/70 Code : 8480-6 BMI: 37.7 Code : 90235-3 Heart Rate 1 : 52 bpm Height: 5'3" Weight: 213 lbs 11/12/2015 Blood Pressure 1: 126/62 Code : 8480-6 BMI: 38.1 Code : 04556-9 Heart Rate 1 : 68 bpm Height: 5'3" SpO2: 98% Weight: 215 lbs 06/08/2015 Blood Pressure 1: 122/68 Code : 8480-6 BMI: 38.3 Code : 38377-6 Heart Rate 1 : 68 bpm Height: 5'3" SpO2: 97% Weight: 216 lbs 12/19/2014 Blood Pressure 1: 132/78 Code : 8480-6 BMI: 39.7 Code : 33803-4 Heart Rate 1 : 69 bpm Height: 5'3" SpO2: 94% Weight: 224 lbs 10/28/2014 Blood Pressure 1: 194/104 Code: 8480-6 Blood Pressure 2: 160/92 Code: 8480-6 BMI: 40.2 Code: 63514-2 Heart Rate 1: 70 bpm Height: 5'3" SpO2: 94% Weight: 227 lbs Functional Status No Functional Status data History of Present Illness Symptom Name Status Result Effective Date Notes hypertension Onset and Resolution ongoing 12/15/2016 None hypertension Onset of Symptom during adulthood 12/15/2016 None hypertension Blood Pressure Values patient checking blood pressure at home - did not bring in readings 12/15/2016 None hypertension Alleviating Factors medication 12/15/2016 None hypertension Pertinent Findings Denies dizziness 12/15/2016 None hypertension Pertinent Findings dyspnea 12/15/2016 with exertion occasionally hypertension Pertinent Findings edema 12/15/2016 (intermittent) paresthesia Location on the right 12/15/2016 hand paresthesia Quality acute 12/15/2016 None paresthesia Quality intermittent 12/15/2016 None paresthesia Onset of Symptom 4+ weeks ago 12/15/2016 None paresthesia Timing of Episodes at night 12/15/2016 None paresthesia Triggers no known associated factors 12/15/2016 None paresthesia Exacerbating Factors position change 12/15/2016 None paresthesia Onset and Resolution ongoing 12/15/2016 None hypertension Onset and Resolution ongoing 08/18/2016 None hypertension Onset of Symptom during adulthood 08/18/2016 None hypertension Blood Pressure Values patient checking blood pressure at home - did not bring in readings 08/18/2016 None hypertension Alleviating Factors medication 08/18/2016 None hypertension Pertinent Findings Denies dizziness 08/18/2016 None hypertension Pertinent Findings dyspnea 08/18/2016 with exertion occasionally hypertension Pertinent Findings edema 08/18/2016 (intermittent) paresthesia Location on the right 08/18/2016 hand paresthesia Quality acute 08/18/2016 None paresthesia Timing of Episodes at night 08/18/2016 None paresthesia Triggers no known associated factors 08/18/2016 None paresthesia Exacerbating Factors position change 08/18/2016 None paresthesia Onset of Symptom 4+ weeks ago 08/18/2016 None paresthesia Quality intermittent 08/18/2016 None hypertension Onset and Resolution ongoing 08/02/2016 None hypertension Onset of Symptom during adulthood 08/02/2016 None hypertension Blood Pressure Values patient checking blood pressure at home - did not bring in readings 08/02/2016 None hypertension Alleviating Factors medication 08/02/2016 None hypertension Pertinent Findings Denies dizziness 08/02/2016 None hypertension Pertinent Findings dyspnea 08/02/2016 with exertion occasionally hypertension Pertinent Findings edema 08/02/2016 (intermittent) hypothyroid Onset and Resolution ongoing 08/02/2016 None hypothyroid Alleviating Factors medication 08/02/2016 None diabetes mellitus Quality non-insulin dependent 08/02/2016 None diabetes mellitus Test results Pt checking blood glucose readings, did not bring results to clinic 08/02/2016 None diabetes mellitus Glucose monitoring occasional glucose testing 08/02/2016 None diabetes mellitus Alleviating Factors diet 08/02/2016 None diabetes mellitus Exacerbating Factors diet 08/02/2016 None paresthesia Location on the right 08/02/2016 hand paresthesia Quality acute 08/02/2016 None paresthesia Onset of Symptom 2 weeks ago 08/02/2016 None paresthesia Timing of Episodes at night 08/02/2016 None paresthesia Triggers no known associated factors 08/02/2016 None paresthesia Exacerbating Factors position change 08/02/2016 None hypertension Onset and Resolution ongoing 04/04/2016 None hypertension Onset of Symptom during adulthood 04/04/2016 None hypertension Blood Pressure Values patient checking blood pressure at home - did not bring in readings 04/04/2016 None hypertension Alleviating Factors medication 04/04/2016 None hypertension Pertinent Findings dizziness 04/04/2016 (occasionally) hypertension Pertinent Findings dyspnea 04/04/2016 (only with exertion) hypertension Pertinent Findings edema 04/04/2016 (intermittent) hypothyroid Onset and Resolution ongoing 04/04/2016 None hypothyroid Alleviating Factors medication 04/04/2016 None hypertension Onset and Resolution ongoing 11/12/2015 None hypertension Onset of Symptom during adulthood 11/12/2015 None hypertension Blood Pressure Values patient checking blood pressure at home - did not bring in readings 11/12/2015 None hypertension Alleviating Factors medication 11/12/2015 None hypertension Pertinent Findings dizziness 11/12/2015 None hypertension Pertinent Findings dyspnea 11/12/2015 None hypertension Pertinent Findings edema 11/12/2015 None hypothyroid Onset and Resolution ongoing 11/12/2015 None hypothyroid Alleviating Factors medication 11/12/2015 None diabetes mellitus Quality non-insulin dependent 11/12/2015 None diabetes mellitus Test results Pt not checking blood glucose readings at home 11/12/2015 None diabetes mellitus Glucose monitoring does not test 11/12/2015 None diabetes mellitus Exacerbating Factors diet 11/12/2015 None diabetes mellitus Pertinent Findings Denies nausea 11/12/2015 None joint complaint Location diffusely 06/08/2015 right hip joint complaint Location on both knees 06/08/2015 None joint complaint Quality chronic 06/08/2015 None joint complaint Onset and Resolution ongoing 06/08/2015 None joint complaint Onset of Symptom 4 years ago 06/08/2015 None joint complaint Limitation on Activities moderately limits activities 06/08/2015 None joint complaint Frequency of Episodes increasing 06/08/2015 ambulates with cane. Uses 1 Naproxen per day- uses alcohol rub- joint complaint Significant Medications NSAIDs 06/08/2015 None joint complaint Triggers activity 06/08/2015 None joint complaint Alleviating Factors medication 06/08/2015 None joint complaint Pertinent Findings Denies joint redness 06/08/2015 None joint complaint Pertinent Findings Denies warmth 06/08/2015 None paresthesia Location bilaterally 06/08/2015 None paresthesia Quality tingling 06/08/2015 in her hands paresthesia Pertinent Findings Denies back pain 06/08/2015 None paresthesia Pertinent Findings Denies dyspnea 06/08/2015 None paresthesia Pertinent Findings Denies nausea 06/08/2015 None paresthesia Pertinent Findings weight change 06/08/2015 None blood pressure followup Quality chronic 06/08/2015 None blood pressure followup Onset and Resolution ongoing 06/08/2015 None blood pressure followup Onset of Symptom during adulthood 06/08/2015 None blood pressure followup Blood Pressure Values pt checking blood pressure at home, did not bring in to clinic 06/08/2015 None blood pressure followup Frequency of Episodes decreasing 06/08/2015 None blood pressure followup Triggers no known associated factors 06/08/2015 None blood pressure followup Alleviating Factors medication 06/08/2015 None joint complaint Location diffusely 12/19/2014 right hip joint complaint Location on both knees 12/19/2014 right knee needs replacement. Reports that at her age she is not going to do them. joint complaint Quality chronic 12/19/2014 None joint complaint Onset and Resolution ongoing 12/19/2014 None joint complaint Onset of Symptom 4 years ago 12/19/2014 None joint complaint Limitation on Activities moderately limits activities 12/19/2014 None joint complaint Frequency of Episodes increasing 12/19/2014 ambulates with cane. Uses 1 Naproxen per day- uses alcohol rub- joint complaint Significant Medications NSAIDs 12/19/2014 None joint complaint Triggers activity 12/19/2014 None joint complaint Alleviating Factors medication 12/19/2014 None joint complaint Pertinent Findings Denies joint redness 12/19/2014 None joint complaint Pertinent Findings Denies warmth 12/19/2014 None hypertension Quality chronic 12/19/2014 None hypertension Onset and Resolution ongoing 12/19/2014 runs 140-150/70s hypertension Onset of Symptom during adulthood 12/19/2014 None hypertension Frequency of Episodes unchanged 12/19/2014 None hypertension Triggers stress 12/19/2014 None hypertension Alleviating Factors medication 12/19/2014 None hypertension Pertinent Findings dyspnea 12/19/2014 None hypertension Pertinent Findings edema 12/19/2014 None edema Location on both ankles 12/19/2014 wondering if propranolol could be causing this- left worse than right. edema Quality chronic 12/19/2014 None edema Onset and Resolution ongoing 12/19/2014 None edema Onset of Symptom 1 months ago 12/19/2014 None edema Limitation on Activities does not limit activities 12/19/2014 None edema Frequency of Episodes increasing 12/19/2014 None edema Significant Past Medical History cardiac disease 12/19/2014 None edema Significant Medications diuretics 12/19/2014 None edema Triggers no known associated factors 12/19/2014 None edema Pertinent Findings dyspnea 12/19/2014 None edema Pertinent Findings Denies limb pain / tenderness 12/19/2014 None joint complaint Location on both knees 10/28/2014 right knee needs replacement. Reports that at her age she is not going to do them. joint complaint Location diffusely 10/28/2014 right hip joint complaint Onset of Symptom 4 years ago 10/28/2014 None joint complaint Frequency of Episodes increasing 10/28/2014 ambulates with cane. Uses 1 Naproxen per day- uses alcohol rub- hypertension Onset and Resolution ongoing 10/28/2014 runs 140-150/70s hypertension Pertinent Findings dyspnea 10/28/2014 None hypertension Pertinent Findings edema 10/28/2014 None edema Location on both ankles 10/28/2014 wondering if propranolol could be causing this- left worse than right. edema Onset of Symptom 1 months ago 10/28/2014 None edema Pertinent Findings Denies limb pain / tenderness 10/28/2014 None edema Pertinent Findings dyspnea 10/28/2014 None hypertension Quality chronic 10/28/2014 None hypertension Onset of Symptom during adulthood 10/28/2014 None hypertension Frequency of Episodes unchanged 10/28/2014 None hypertension Triggers stress 10/28/2014 None hypertension Alleviating Factors medication 10/28/2014 None edema Quality chronic 10/28/2014 None edema Onset and Resolution ongoing 10/28/2014 None edema Limitation on Activities does not limit activities 10/28/2014 None edema Frequency of Episodes increasing 10/28/2014 None edema Significant Past Medical History cardiac disease 10/28/2014 None edema Significant Medications diuretics 10/28/2014 None edema Triggers no known associated factors 10/28/2014 None joint complaint Quality chronic 10/28/2014 None joint complaint Onset and Resolution ongoing 10/28/2014 None joint complaint Limitation on Activities moderately limits activities 10/28/2014 None joint complaint Significant Medications NSAIDs 10/28/2014 None joint complaint Mechanism of injury unknown 10/28/2014 None joint complaint Triggers activity 10/28/2014 None joint complaint Alleviating Factors medication 10/28/2014 None joint complaint Pertinent Findings Denies joint redness 10/28/2014 None joint complaint Pertinent Findings Denies warmth 10/28/2014 None Advance Directives No Advance Directive data Encounters Encounter Performer Location Codes Date ([id number]) [id number] EST. PATIENT, LEVEL IV Diagnosis: Atrophy of thyroid (acquired)[ICD10: E03.4] Diagnosis: Hypokalemia[ICD10: E87.6] Diagnosis: Essential (primary) hypertension[ICD10: I10] Maria Fernanda Catherine MD, [facility] CPT-4: 13894 12/15/2016 ([id number]) 09993 EST. PATIENT, LEVEL IV Diagnosis: Atrophy of thyroid (acquired)[ICD10: E03.4] Diagnosis: Type 2 diabetes mellitus without complications[ICD10: E11.9] Diagnosis: Mixed hyperlipidemia[ICD10: E78.2] Diagnosis: Essential (primary) hypertension[ICD10: I10] Maria Fernanda Catherine MD, [facility] CPT-4: 35135 08/18/2016 ([id number]) [id number] EST. 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 PATIENT, LEVEL IV Diagnosis: Essential (primary) hypertension[ICD10: I10] Diagnosis: Hypothyroidism, unspecified[ICD10: E03.9] Maria Fernanda Catherine MD, [facility] CPT-4: 19876 11/12/2015 [id number]) [id number] EST. PATIENT, LEVEL IV Diagnosis: Essential (primary) hypertension[ICD10: I10] Diagnosis: Hypothyroidism, unspecified[ICD10: E03.9] Diagnosis: Primary osteoarthritis, unspecified site[ICD10: M19.91] Diagnosis: Pain in left hip[ICD10: M25.552] Diagnosis: Type 2 diabetes mellitus without complications[ICD10: E11.9] [facility] CPT-4: 97556 06/08/2015 ([id number]) [id number] EST. PATIENT, LEVEL IV Diagnosis: ESSENTIAL HYPERTENSION[ICD9: 401.9] Diagnosis: DIABETES TYPE II[ICD9: 250.00] Diagnosis: HYPERLIPIDEMIA[ICD9: 272.4] Diagnosis: Osteoarthritis[ICD9: 715.90] [facility] CPT- 4: 83906 12/19/2014 ([id number]) OFFICE VISIT, NEW - LEVEL 4 Diagnosis: ESSENTIAL HYPERTENSION[ICD9: 401.9] Diagnosis: EDEMA[ICD9: 782.3] Diagnosis: DIABETES TYPE II[ICD9: 250.00] Diagnosis: HYPOTHYROIDISM[ICD9: 244.9] Diagnosis: Osteoarthritis[ICD9: 715.90] [facility] CPT-4: 89705 10/28/2014 Plan of Care Planned Activity Notes Codes Status Date Appointment: Maria Fernanda Catherine WPtel: [facility] (15 min) Moderate 04/19/2017 Visit Plan: Hypothyroidism - pt with chronic hypothyroidism , continue with current medication, will monitor pt to signs or symptoms of lack of adequate supplementation. Pt is to continue with current dose of medication unless directed otherwise. Check labs at regular intervals wither q 3 months or q 6 months based on previous levels of control. Hypokalemia - depending on potassium level on lab - may need to change to liquid potassium Hypertension - well controlled - continue with current medications, continue with no added salt diet. Pt has been encouraged to exercise daily. The pt has been advised to call the office if there are any acute concerns about change in blood pressure readings at home. 12/15/2016 Appointment: Maria Fernanda Catherine WPtel: [facility] [place] (15 min) Moderate 12/15/2016 Patient Education: Patient Medication Summary Completed 12/15/2016 Patient Education: Obesity Completed 12/15/2016 Care Plan: Comp Metabolic Cancelled 12/15/2016 Care Plan: Tsh Cancelled 12/15/2016 Care Plan: Cbc With Differential Cancelled 12/15/2016 Appointment: Maria Fernanda Catherine [facility]Ptel[facility] [phone] [facility] [place] (15 min) Moderate 10/20/2016 Visit Plan: Hypertension - well controlled - continue with current medications, continue with no added salt diet. Pt has been encouraged to exercise daily. The pt has been advised to call the office if there are any acute concerns about change in blood pressure readings at home. Hypothyroidism - pt with chronic hypothyroidism, continue with current medication, will monitor pt to signs or symptoms of lack of adequate supplementation. Pt is to continue with current dose of medication unless directed otherwise. Check labs at regular intervals wither q 3 months or q 6 months based on previous levels of control. Hypothyroidism - pt with chronic hypothyroidism, continue with current medication, will monitor pt to signs or symptoms of lack of adequate supplementation. Pt is to continue with current dose of medication unless directed otherwise. Check labs at regular intervals wither q 3 months or q 6 months based on previous levels of control. Diabetes Mellitus - controlled - per recent FSBS reports. I have recommended for the patient to have follow up labs prior to the next office visit. The patient has been instructed to continue with current medications as previously directed, continue with regular FSBS monitoring to assure continued control of diabetes. Pt to call for any acute concerns, complaints, or if the blood glucose readings are starting to become less controlled. 08/18/2016 Appointment: Maria Fernanda Catherine [facility]el[facility] [phone] [facility] (30 min) Complex 08/18/2016 Patient Education: Patient Medication Summary Completed 08/18/2016 Patient Education: Obesity Completed 08/18/2016 Care Plan: Comp Metabolic Cancelled 08/18/2016 Care Plan: Cbc With Differential Cancelled 08/18/2016 Care Plan: %Hba1C LOINC : 02202-8 Cancelled 08/18/2016 Care Plan: Tsh Cancelled 08/18/2016 Care Plan: Lipid Cancelled 08/18/2016 Care Plan: Free T4 Cancelled 08/18/2016 Visit Plan: Hypertension - well controlled - continue with current medications, continue with no added salt diet. Pt has been encouraged to exercise daily. The pt has been advised to call the office if there are any acute concerns about change in blood pressure readings at home. Weakness, gait instability - rx for wheelchair - sent with patient and to DME today. Pt needs wheelchair due to inability ambulate without need to rest, pt cannot ambulate more than _10__feet without need to rest, she has difficulty ambulating to her restroom, kitchen etc, due to the length of the walk causing fatigue. A cane or walker will not alleviate her back and leg discomfort enough to allow her to continue to walk without resting in a wheelchair to get to her destination. Bradycardia - stop the 80mg propranolol and start on lower dose of 60mg propranolol twice daily. keep record of the heart rate and blood pressure and bring to clinic in about 2 weeks. 08/02/2016 Visit Plan: Hypertension - well controlled - continue with current medications, continue with no added salt diet. Pt has been encouraged to exercise daily. The pt has been advised to call the office if there are any acute concerns about change in blood pressure readings at home. Weakness, gait instability - rx for wheelchair - sent with patient and to DME today. Pt needs wheelchair due to inability ambulate without need to rest, pt cannot ambulate more than _10__feet without need to rest. Bradycardia - stop the 80mg propranolol and start on lower dose of 60mg propranolol twice daily. keep record of the heart rate and blood pressure and bring to clinic in about 2 weeks. 08/02/2016 Appointment: Maria Fernanda Catherine WPtel: [facility]5 [facility] (15 min) Moderate 08/02/2016 Patient Education: Patient Medication Summary Completed 08/02/2016 Appointment: Maria Fernanda Catherine [facility]Ptel: [phone] [facility] [place] (15 min) Moderate 07/21/2016 Appointment: Maria Fernanda Catherine WPtel: [facility] [place] (15 min) Moderate 06/06/2016 Visit Plan: Hypertension - well controlled - continue with current medications, continue with no added salt diet. Pt has been encouraged to exercise daily. The pt has been advised to call the office if there are any acute concerns about change in blood pressure readings at home. Edema - improved - decrease lasix to 40mg four days a week. OA - hip pain, weakness, shoulder pain - recommended pt to use a wheelchair due to her decreased mobility. Diabetes Mellitus - controlled - per recent FSBS reports. I have recommended for the patient to have follow up labs prior to the next office visit. The patient has been instructed to continue with current medications as previously directed, continue with regular FSBS monitoring to assure continued control of diabetes. Pt to call for any acute concerns, complaints, or if the blood glucose readings are starting to become less controlled. 04/04/2016 Appointment: Maria Fernanda Catherine [facility]Ptel[facility] [phone] [facility] [place] (15 min) Moderate 04/04/2016 Patient Education: Patient Medication Summary Completed 04/04/2016 Patient Education: Obesity Completed 04/04/2016 Appointment: Maria Fernanda Catherine [facility]el[facility] [phone] [facility] [place] (30 min) Complex 03/17/2016 Visit Plan: Hypertension - well controlled - continue with current medications, continue with no added salt diet. Pt has been encouraged to exercise daily. The pt has been advised to call the office if there are any acute concerns about change in blood pressure readings at home. Hypothyroidism - pt with chronic hypothyroidism, continue with current medication, will monitor pt to signs or symptoms of lack of adequate supplementation. Pt is to continue with current dose of medication unless directed otherwise. Check labs at regular intervals wither q 3 months or q 6 months based on previous levels of control. 11/12/2015 Patient Education: Patient Medication Summary Completed 11/12/2015 Patient Education: Patient Medication Summary Completed 10/14/2015 Appointment: (30 min) Complex 09/07/2015 Patient Education: Patient Medication Summary Completed 08/24/2015 Patient Education: Patient Medication Summary Completed 06/22/2015 Visit Plan: Hypertension - too well controlled - continue with current medications, continue with no added salt diet. Pt has been encouraged to exercise daily. The pt has been advised to call the office if there are any acute concerns about change in blood pressure readings at home. HOLD CLONIDINE-MONITOR BLOOD PRESSURE AND PULSE AT HOME-CALL WITH READINGS IN 2 WEEKS Hypothyroidism - pt with chronic hypothyroidism, continue with current medication, will monitor pt to signs or symptoms of lack of adequate supplementation. Pt is to continue with current dose of medication unless directed otherwise. Check labs at regular intervals wither q 3 months or q 6 months based on previous levels of control. RECHECK LABS TODAY Elevated blood sugars-monitor Hgb A1C Left hip pain-xray left hip today at the hospital- mychal is unable to bear much weight on left leg OA-bilateral knees-left hip- gait kisiwjmedvn-[id number] fall-refer to [facility] for physical therapy 06/08/2015 Appointment: (30 min) Complex 06/08/2015 Patient Education: Patient Medication Summary Completed 06/08/2015 Patient Education: Hypertension Completed 06/08/2015 Appointment: Maria Fernanda Catherine [facility]Ptel: [phone] [facility] (15 min) Moderate 02/23/2015 Visit Plan: Hypertension - well controlled - continue with current medications, continue with no added salt diet. Pt has been encouraged to exercise daily. The pt has been advised to call the office if there are any acute concerns about change in blood pressure readings at home. Diabetes Mellitus - controlled - per recent FSBS reports. I have recommended for the patient to have follow up labs prior to the next office visit. The patient has been instructed to continue with current medications as previously directed, continue with regular FSBS monitoring to assure continued control of diabetes. Pt to call for any acute concerns, complaints, or if the blood glucose readings are starting to become less controlled. Nocturnal Hypoxemia - O2 at night d/t risk of dementia with low O2 sats at night time. OA - Continue using rubs on joints. May need prescription in future if pain progresses. 12/19/2014 Appointment: Maria Fernanda Catherine [facility]Ptel[facility] [phone] [facility] (15 min) Moderate 12/19/2014 Patient Education: Patient Medication Summary Completed 12/19/2014 Patient Education: Hypertension Completed 12/19/2014 Visit Plan: Hypertension - uncontrolled - the patient's medications have been modified as documented in the visit note. The patient has been counseled to cut back on salt in diet for a no added salt diet, low fat diet, start an exercise program with low weight bearing exercises and higher aerobic activity for heart health. The patient is to check blood pressure readings as an outpatient and either fax, call, or email the readings to the office next week for practitioner to review. The pt is to call for acute concerns. ADD HCTZ 12.5MG TO CURRENT MEDICATIONS WHEN YOU ARE OUT OF IRBESARTAN/ HCTZ, WE WILL INCREASE YOUR DOSE TO 300MG/25MG Hypothyroidism - pt with chronic hypothyroidism, continue with current medication, will monitor pt to signs or symptoms of lack of adequate supplementation. Pt is to continue with current dose of medication unless directed otherwise. Check labs at regular intervals wither q 3 months or q 6 months based on previous levels of control. Edema - pt has been advised to elevate legs to prevent dependent edema, compression has been recommended to help to naturally decrease peripheral edema. Diuretic use has been discussed and pt has been instructed in appropriate use of such medication as necessary to further attempt to reduce peripheral edema. Diabetes Mellitus - I have recommended for the patient to have follow up labs prior to the next office visit. The patient has been instructed to continue with current medications as previously directed, continue with regular FSBS monitoring to assure continued control of diabetes. Pt to call for any acute concerns, complaints, or if the blood glucose readings are starting to become less controlled. 10/28/2014 Appointment: (S) New Patient 10/28/2014 Patient Education: Patient Medication Summary Completed 10/28/2014 Patient Education: Hypertension Completed 10/28/2014 Care Plan: COMPLETE CBC AUTOMATED LOINC : 41435-5 Ordered 10/28/2014 Appointment: Maria Fernanda Catherine WPtel: [phone] [facility] [place] [place] (S) New Patient 10/08/2014 Instructions Comment . Hypertension - well controlled - continue with current medications, continue with no added salt diet. Pt has been encouraged to exercise daily. The pt has been advised to call the office if there are any acute concerns about change in blood pressure readings at home. Hypothyroidism - pt with chronic hypothyroidism, continue with current medication, will monitor pt to signs or symptoms of lack of adequate supplementation. Pt is to continue with current dose of medication unless directed otherwise. Check labs at regular intervals wither q 3 months or q 6 months based on previous levels of control. Hypothyroidism - pt with chronic hypothyroidism, continue with current medication, will monitor pt to signs or symptoms of lack of adequate supplementation. Pt is to continue with current dose of medication unless directed otherwise. Check labs at regular intervals wither q 3 months or q 6 months based on previous levels of control. Diabetes Mellitus - controlled - per recent FSBS reports. I have recommended for the patient to have follow up labs prior to the next office visit. The patient has been instructed to continue with current medications as previously directed, continue with regular FSBS monitoring to assure continued control of diabetes. Pt to call for any acute concerns, complaints, or if the blood glucose readings are starting to become less controlled. Restart wearing oxygen at night. Continue using topical pain medication on joints. . Hypertension - well controlled - continue with current medications, continue with no added salt diet. Pt has been encouraged to exercise daily. The pt has been advised to call the office if there are any acute concerns about change in blood pressure readings at home. Diabetes Mellitus - controlled - per recent FSBS reports. I have recommended for the patient to have follow up labs prior to the next office visit. The patient has been instructed to continue with current medications as previously directed, continue with regular FSBS monitoring to assure continued control of diabetes. Pt to call for any acute concerns, complaints, or if the blood glucose readings are starting to become less controlled. Nocturnal Hypoxemia - O2 at night d/t risk of dementia with low O2 sats at night time. OA - Continue using rubs on joints. May need prescription in future if pain progresses. stop the 80mg propranolol and start on lower dose of 60mg propranolol twice daily. keep record of the heart rate and blood pressure and bring to clinic in about 2 weeks. . Hypertension - well controlled - continue with current medications, continue with no added salt diet. Pt has been encouraged to exercise daily. The pt has been advised to call the office if there are any acute concerns about change in blood pressure readings at home. Weakness, gait instability - rx for wheelchair - sent with patient and to DME today. Pt needs wheelchair due to inability ambulate without need to rest, pt cannot ambulate more than _10__feet without need to rest, she has difficulty ambulating to her restroom, kitchen etc, due to the length of the walk causing fatigue. A cane or walker will not alleviate her back and leg discomfort enough to allow her to continue to walk without resting in a wheelchair to get to her destination. Bradycardia - stop the 80mg propranolol and start on lower dose of 60mg propranolol twice daily. keep record of the heart rate and blood pressure and bring to clinic in about 2 weeks. stop the 80mg propranolol and start on lower dose of 60mg propranolol twice daily. keep record of the heart rate and blood pressure and bring to clinic in about 2 weeks. . Hypertension - well controlled - continue with current medications, continue with no added salt diet. Pt has been encouraged to exercise daily. The pt has been advised to call the office if there are any acute concerns about change in blood pressure readings at home. Weakness, gait instability - rx for wheelchair - sent with patient and to DME today. Pt needs wheelchair due to inability ambulate without need to rest, pt cannot ambulate more than _10__feet without need to rest. Bradycardia - stop the 80mg propranolol and start on lower dose of 60mg propranolol twice daily. keep record of the heart rate and blood pressure and bring to clinic in about 2 weeks. stop the plain hydrochlorothiazide 12.5mg pill . Hypertension - well controlled - continue with current medications, continue with no added salt diet. Pt has been encouraged to exercise daily. The pt has been advised to call the office if there are any acute concerns about change in blood pressure readings at home. Hypothyroidism - pt with chronic hypothyroidism, continue with current medication, will monitor pt to signs or symptoms of lack of adequate supplementation. Pt is to continue with current dose of medication unless directed otherwise. Check labs at regular intervals wither q 3 months or q 6 months based on previous levels of control. . Hypertension - uncontrolled - the patient's medications have been modified as documented in the visit note. The patient has been counseled to cut back on salt in diet for a no added salt diet, low fat diet, start an exercise program with low weight bearing exercises and higher aerobic activity for heart health. The patient is to check blood pressure readings as an outpatient and either fax , call, or email the readings to the office next week for practitioner to review. The pt is to call for acute concerns. ADD HCTZ 12.5MG TO CURRENT MEDICATIONS WHEN YOU ARE OUT OF IRBESARTAN/HCTZ, WE WILL INCREASE YOUR DOSE TO 300MG/25MG Hypothyroidism - pt with chronic hypothyroidism, continue with current medication, will monitor pt to signs or symptoms of lack of adequate supplementation. Pt is to continue with current dose of medication unless directed otherwise. Check labs at regular intervals wither q 3 months or q 6 months based on previous levels of control. Edema - pt has been advised to elevate legs to prevent dependent edema, compression has been recommended to help to naturally decrease peripheral edema. Diuretic use has been discussed and pt has been instructed in appropriate use of such medication as necessary to further attempt to reduce peripheral edema. Diabetes Mellitus - I have recommended for the patient to have follow up labs prior to the next office visit. The patient has been instructed to continue with current medications as previously directed, continue with regular FSBS monitoring to assure continued control of diabetes. Pt to call for any acute concerns, complaints, or if the blood glucose readings are starting to become less controlled. . Hypothyroidism - pt with chronic hypothyroidism, continue with current medication, will monitor pt to signs or symptoms of lack of adequate supplementation. Pt is to continue with current dose of medication unless directed otherwise. Check labs at regular intervals wither q 3 months or q 6 months based on previous levels of control. Hypokalemia - depending on potassium level on lab - may need to change to liquid potassium Hypertension - well controlled - continue with current medications, continue with no added salt diet. Pt has been encouraged to exercise daily. The pt has been advised to call the office if there are any acute concerns about change in blood pressure readings at home. decrease the lasix to 40mg 4 days a week - decrease potassium to twice daily four days a week . Hypertension - well controlled - continue with current medications, continue with no added salt diet. Pt has been encouraged to exercise daily. The pt has been advised to call the office if there are any acute concerns about change in blood pressure readings at home. Edema - improved - decrease lasix to 40mg four days a week. OA - hip pain, weakness, shoulder pain - recommended pt to use a wheelchair due to her decreased mobility. Diabetes Mellitus - controlled - per recent FSBS reports. I have recommended for the patient to have follow up labs prior to the next office visit. The patient has been instructed to continue with current medications as previously directed, continue with regular FSBS monitoring to assure continued control of diabetes. Pt to call for any acute concerns, complaints, or if the blood glucose readings are starting to become less controlled. HOLD CLONIDINE MONITOR BLOOD PRESSURE AND CALL WITH READINGS IN 2 WEEKS RECOMMEND XRAY REFER FOR PHYSICAL THERAPY-[facility] CHAVEZ . Hypertension - too well controlled - continue with current medications, continue with no added salt diet. Pt has been encouraged to exercise daily. The pt has been advised to call the office if there are any acute concerns about change in blood pressure readings at home. HOLD CLONIDINE-MONITOR BLOOD PRESSURE AND PULSE AT HOME-CALL WITH READINGS IN 2 WEEKS Hypothyroidism - pt with chronic hypothyroidism, continue with current medication, will monitor pt to signs or symptoms of lack of adequate supplementation. Pt is to continue with current dose of medication unless directed otherwise. Check labs at regular intervals wither q 3 months or q 6 months based on previous levels of control. RECHECK LABS TODAY Elevated blood sugars-monitor Hgb A1C Left hip pain-xray left hip today at the hospital-mychal is unable to bear much weight on left leg OA-bilateral knees-left hip-gait ypflzsnrzpo-tduhrqrb-ouwxwk fall-refer to Sivan Chavez for physical therapy
--- OUTSIDE RECORDS SUMMARY | 2017-10-23 10:49 | XMS REPORT | Continuity of Care Document ---
Author Author [facility] Organization [facility] Address Unknown Phone Unavailable Allergies Active Description Code Type Severity Reaction Onset Reported/Identified Relationship to Patient Clinical Status Yes No Known Drug Allergies [id number] Drug Allergy Mild N/A 08/29/2008 Medications There is no data. Problems Date Dx Coded Attending Type Code Diagnosis Diagnosed By 06/10/2012 Ot 401.9 HYPERTENSION NOS 06/10/2012 Ot 599.0 URIN TRACT INFECTION NOS 06/10/2012 Ot 780.4 DIZZINESS AND GIDDINESS 06/10/2012 Ot V58.69 OTH MED,LT, CURRENT USE 07/10/2015 Ot V76.12 07/10/2015 Ot 401.9 07/10/2015 Ot 715.35 07/10/2015 Ot 786.05 07/23/2015 LUPILLO MANCUSO Ot M16.12 07/23/2015 Ot V76.12 07/23/2015 Ot 401.9 07/23/2015 Ot 715.35 07/23/2015 Ot 786.05 07/23/2015 LUPILLO MANCUSO Ot M16.12 07/23/2015 LUPILLO MANCUSO Ot M16.12 02/22/2016 Ot 401.9 HYPERTENSION NOS 02/22/2016 Ot 715.35 LOC OSTEOARTH NOS-PELVIS 02/22/2016 Ot 786.05 SHORTNESS OF BREATH 02/22/2016 LUPILLO MANCUSO Ot M16.12 UNILATERAL PRIMARY OSTEOARTHRITIS, LEFT 03/01/2016 LUPILLO MANCUSO Ot M16.12 UNILATERAL PRIMARY OSTEOARTHRITIS, LEFT Procedures There is no data. Results There is no data. Encounters ACCT No. Visit Date/Time Discharge Status Pt. Type Provider Facility Loc./Unit Complaint [id number] 07/10/2015 14:18:00 07/10/2015 23:59:59 CLS Outpatient LUPILLO MANCUSO [facility] RAD L HIP PAIN [id number] 06/10/2012 13:39:00 Document Registration [id number] 08/09/2011 08:22:00 Document Registration [id number] 02/22/2010 12:52:00 Document Registration
--- NOTE | 2017-10-23 11:19 | ED General ---
General Stated Complaint: REDNESS AND SWELLING OF FEET Source of Information: Patient, Family Exam Limitations: No Limitations History of Present Illness Date Seen by Provider: Oct 23, 2017 Time Seen by Provider: 11:14 Initial Comments Patient is a 77-year-old female who presents to the emergency room with complaints of bilateral lower extremity swelling. She reports being prescribed 80 mg of Lasix daily has recently stopped taking it and started taking 40 mg every other day due to dehydration. She is also concerned about skin changes on her ankles and feet. Timing/Duration: Other (2 weeks) Modifying Factors: improves with Medication, improves with Other (elevating her feet) Associated Systoms: Denies Symptoms; No Chest Pain, No Cough Allergies and Home Medications Allergies Coded Allergies: No Known Drug Allergies (Unverified Allergy, Mild, 08/29/08) Home Medications Fluconazole 150 Mg Tablet, 1 EACH PO ONCE, (Reported) Lisinopril 10 Mg Tablet, 10 MG PO DAILY Prescribed by: MIS BAILON on 08/29/08 [id number] Patient Home Medication List Home Medication List Reviewed: Yes Review of Systems Constitutional: see HPI; No chills, No diaphoresis EENTM: see HPI; No blurred vision, No double vision Respiratory: see HPI; No cough, No dyspnea on exertion Cardiovascular: see HPI; No chest pain; edema; No Hx of Intervention, No palpitations Gastrointestinal: see HPI; No abdominal pain, No constipation, No diarrhea, No vomiting Genitourinary: see HPI; No decreased output, No discharge Musculoskeletal: see HPI; No back pain, No gout Skin: see HPI, change in color, other (thickening of the skin to the lower extremities) Psychiatric/Neurological: See HPI; Denies Anxiety, Denies Depressed Hematologic/Lymphatic: See HPI; Denies Anemia Immunological/Allergic: see HPI; denies food allergy All Other Systems Reviewed Negative Unless Noted: Yes Past Lfquanc-Pisqvq-Lqovpu Hx Past Med/Social Hx: Reviewed Nursing Past Med/Soc Hx Patient Social History Recent Foreign Travel: No Contact w/Someone Who Travel: No Immunizations Up To Date Date of Pneumonia Vaccine: May 10, 2010 Date of Influenza Vaccine: Jan 09, 2012 Past Medical History Reproductive Disorders: No Arthritis, Gout Family Medical History Reviewed Nursing Family Hx Physical Exam Vital Signs Vital Signs - First Documented 10/23/17 11:50 Temp 97.9 Pulse 70 Resp 18 B/P (MAP) 185/105 (131) Pulse Ox 95 Capillary Refill : General Appearance: No Apparent Distress, WD/WN Eyes: Bilateral Eye Normal Inspection, Bilateral Eye PERRL, Bilateral Eye EOMI HEENT: TMs Normal, Normal ENT Inspection, Pharynx Normal Neck: Full Range of Motion, Normal Inspection Respiratory: Chest Non Tender, Lungs Clear, Normal Breath Sounds, No Accessory Muscle Use, No Respiratory Distress Cardiovascular: Regular Rate, Rhythm, No Gallop, No JVD, No Murmur, Normal Peripheral Pulses, Other (pitting edema to the lower extremities bilaterally) Gastrointestinal: No Organomegaly, No Pulsatile Mass, Non Tender Back: Normal Inspection, No CVA Tenderness, No Vertebral Tenderness Extremity: Normal Capillary Refill, No Calf Tenderness, Pedal Edema Neurologic/Psychiatric: Alert, Oriented x3, No Motor/Sensory Deficits Skin: Normal Color, Warm/Dry, Other (thickening of the skin and brown discoloration to the feet bilaterally.) Lymphatic: No Adenopathy Progress/Results/Core Measures Suspected Sepsis SIRS Temperature: Pulse: Respiratory Rate: Laboratory Tests 10/23/17 11:30: White Blood Count 6.3 Blood Pressure / Mean: Laboratory Tests 10/23/17 11:30: Creatinine 0.64, Platelet Count 235, Total Bilirubin 1.1H Results/Orders Lab Results Laboratory Tests Test 10/23/17 11:30 Range/Units White Blood Count 6.3 4.3-11.0 10^3/uL Red Blood Count 4.24 L 4.35-5.85 10^6/uL Hemoglobin 13.4 11.5-16.0 G/DL Hematocrit 39 35-52 % Mean Corpuscular Volume 93 80-99 FL Mean Corpuscular Hemoglobin 32 25-34 PG Mean Corpuscular Hemoglobin Concent 34 32-36 G/DL Red Cell Distribution Width 14.8 H 10.0-14.5 % Platelet Count 235 130-400 10^3/uL Mean Platelet Volume 10.7 H 7.4-10.4 FL Neutrophils (%) (Auto) 68 42-75 % Lymphocytes (%) (Auto) 24 12-44 % Monocytes (%) (Auto) 6 0-12 % Eosinophils (%) (Auto) 1 0-10 % Basophils (%) (Auto) 0 0-10 % Neutrophils # (Auto) 4.3 1.8-7.8 X 10^3 Lymphocytes # (Auto) 1.5 1.0-4.0 X 10^3 Monocytes # (Auto) 0.4 0.0-1.0 X 10^3 Eosinophils # (Auto) 0.1 0.0-0.3 10^3/uL Basophils # (Auto) 0.0 0.0-0.1 10^3/uL Sodium Level 140 135-145 MMOL/L Potassium Level 3.3 L 3.6-5.0 MMOL/L Chloride Level 102 98-107 MMOL/L Carbon Dioxide Level 28 21-32 MMOL/L Anion Gap 10 5-14 MMOL/L Blood Urea Nitrogen 7 7-18 MG/DL Creatinine 0.64 0.60-1.30 MG/DL Estimat Glomerular Filtration Rate > 60 BUN/Creatinine Ratio 11 Glucose Level 103 70-105 MG/DL Calcium Level 10.8 H 8.5-10.1 MG/DL Total Bilirubin 1.1 H 0.1-1.0 MG/DL Aspartate Amino Transf (AST/SGOT) 20 5-34 U/L Alanine Aminotransferase (ALT/SGPT) 16 0-55 U/L Alkaline Phosphatase 125 40-136 U/L B-Type Natriuretic Peptide 204.6 H <100.0 PG/ML Total Protein 8.0 6.4-8.2 GM/DL Albumin 4.1 3.2-4.5 GM/DL My Orders Orders - LACHELLE BECKFORD APRN Cbc With Automated Diff (10/23/17 11:11) Comprehensive Metabolic Panel (10/23/17 11:11) BNP (10/23/17 11:11) Chest 1 View, Ap/Pa Only (10/23/17 11:11) Iv Heplock-Insert (Order) (10/23/17 11:12) Vital Signs/I&O 10/23/17 11:50 Temp 97.9 Pulse 70 Resp 18 B/P (MAP) 185/105 (131) Pulse Ox 95 Capillary Refill : Diagnostic Imaging Diagonstic Imaging: Xray Plain Films/CT/US/NM/MRI: chest Comments NAME: [facility] REC#: [id number] PT STATUS: REG ER : 1940 PHYSICIAN: LACHELLE BECKFORD APRN ADMIT DATE: 10/23/17/ER Draft Date of Exam:10/23/17 CHEST 1 VIEW, AP/PA ONLY INDICATION: Swelling in the lower extremities. COMPARISON: 06/10/2012. FINDINGS: Upright portable view of the chest is obtained. There is cardiomegaly which appears slightly more prominent on the prior study. Central venous structures appear mildly prominent. There is no pneumothorax, mediastinal widening or pleural fluid. No significant edema or pneumonia is suspected. IMPRESSION: Cardiomegaly with mild central venous congestion. No additional abnormalities demonstrated. Dictated on workstation # [id number] Dict: 10/23/17 1150 Trans: 10/23/17 1154 [facility] [id number] Interpreted by: KAY ALMANZA DO Electronically signed by: Departure Impression Primary Impression: Venous stasis Disposition: 01 HOME, SELF-CARE Condition: Stable/Unchanged Departure-Patient Inst. Decision time for Depature: 12:28 Referrals: SUSANA REES DPM, HOLLY A MD (PCP/Family) Primary Care Physician JEFFREY HAZEL DPM, CORIN Q DPM Patient Instructions: Dependent Edema (DC) Add. Discharge Instructions: Continue take your Lasix 40 mg every other day. Also wear the JESSA hose and we have provided at all times, will help return the fluid back into circulation. follow-up with Dr. Catherine within 1 week call today for an appointment time. Return back to the emergency room for any worsening pain, swelling, chest pain, shortness of breath or concerns as needed. LACHELLE BECKFORD [employer] Oct 23, 2017 11:19
[2017-10-23 11:41] LABS: BASOPHILS % (AUTO) 0 % (0-10); EOSINOPHILS # (AUTO) 0.1 10^3/uL (0.0-0.3); EOSINOPHILS % (AUTO) 1 % (0-10); HEMATOCRIT 39 % (35-52); HEMOGLOBIN 13.4 G/DL (11.5-16.0); LYMPHOCYTES # (AUTO) 1.5 X 10^3 (1.0-4.0); LYMPHOCYTES % (AUTO) 24 % (12-44); MEAN CORPUSCULAR HEMOGLOBIN 32 PG (25-34); MEAN CORPUSCULAR HGB CONC 34 G/DL (32-36); MEAN CORPUSCULAR VOLUME 93 FL (80-99); MEAN PLATELET VOLUME 10.7 FL (7.4-10.4); MONOCYTES # (AUTO) 0.4 X 10^3 (0.0-1.0); MONOCYTES % (AUTO) 6 % (0-12); NEUTROPHILS # (AUTO) 4.3 X 10^3 (1.8-7.8); NEUTROPHILS % (AUTO) 68 % (42-75); PLATELET COUNT 235 10^3/uL (130-400); RED BLOOD COUNT 4.24 10^6/uL (4.35-5.85); RED CELL DISTRIBUTION WIDTH 14.8 % (10.0-14.5); WHITE BLOOD COUNT 6.3 10^3/uL (4.3-11.0)
--- NOTE | 2017-10-23 11:54 | Diagnostic Imaging Report ---
INDICATION: Swelling in the lower extremities. COMPARISON: 06/10/2012. FINDINGS: Upright portable view of the chest is obtained. There is cardiomegaly which appears slightly more prominent on the prior study. Central venous structures appear mildly prominent. There is no pneumothorax, mediastinal widening or pleural fluid. No significant edema or pneumonia is suspected. IMPRESSION: Cardiomegaly with mild central venous congestion. No additional abnormalities demonstrated. Dictated by: Dictated on workstation # [id number]
[2017-10-23 12:03] LABS: ALANINE AMINOTRANSFERASE 16 U/L (0-55); ALBUMIN 4.1 GM/DL (3.2-4.5); ALKALINE PHOSPHATASE 125 U/L (40-136); BILIRUBIN,TOTAL 1.1 MG/DL (0.1-1.0); BUN/CREATININE RATIO 11; CALCIUM 10.8 MG/DL (8.5-10.1); CARBON DIOXIDE 28 MMOL/L (21-32); CHLORIDE 102 MMOL/L (98-107); CREATININE SERUM 0.64 MG/DL (0.60-1.30); GFR ESTIMATED > 60; GLUCOSE 103 MG/DL (70-105); POTASSIUM 3.3 MMOL/L (3.6-5.0); SODIUM 140 MMOL/L (135-145)
[2017-10-23 12:53] VITALS: BP 185/105
== END 2017-10-23 13:45 | disposition home or self-care (01) ==
LOC: EDUNIT# 10:40 → ER 10:42
DX: I87.8 Other specified disorders of veins (principal); M06.9 Rheumatoid arthritis, unspecified
CPT/HCPCS: 36415; 71045; 80053; 83880; 85025

== ENCOUNTER 2019-10-12 13:40 | Emergency (ER) | payer MEDICARE, OTHER ==
[~2019-10-12] VITALS: Ht 160 cm; Wt 102.0 kg
--- NOTE | 2019-10-12 13:52 | ED Fall/Injury ---
General Stated Complaint: DIZZY/FALL Source: patient Exam Limitations: no limitations History of Present Illness Date Seen by Provider: Oct 12, 2019 Time Seen by Provider: 13:50 Initial Comments To ER for EMS from home with reports of dizziness and a fall yesterday. She reports that she called EMS yesterday but they showed up and she was feeling better so she declined transport. Today she's had some persistent weakness and dizziness and decided to come in. She denies shortness of breath or chest pain. She denies abdominal pain nausea vomiting or diarrhea. She states that she was a little confused yesterday after the fall. Occurred: just prior to arrival Severity: moderate Injuries/Pain Location: no injury Loss of Consciousness: no loss of consciousness Associated Symptoms (Fall): Denies Symptoms Allergies and Home Medications Allergies Coded Allergies: No Known Drug Allergies (Unverified Allergy, Mild, 08/29/08) Home Medications Fluconazole 150 Mg Tablet, 1 EACH PO ONCE, (Reported) Lisinopril 10 Mg Tablet, 10 MG PO DAILY Prescribed by: MIS BAILON on 08/29/08 [id number] Patient Home Medication List Home Medication List Reviewed: Yes Review of Systems Review of Systems Constitutional: see HPI Eyes: No Symptoms Reported Ears, Nose, Mouth, Throat: no symptoms reported Respiratory: no symptoms reported Cardiovascular: no symptoms reported Genitourinary: no symptoms reported Musculoskeletal: no symptoms reported Skin: no symptoms reported Psychiatric/Neurological: No Symptoms Reported Past Irogfde-Wzepqz-Snrobl Hx Patient Social History 2nd Hand Smoke Exposure: No Immunizations Up To Date Date of Pneumonia Vaccine: May 10, 2010 Date of Influenza Vaccine: Jan 09, 2012 Past Medical History Surgeries: Yes Respiratory: Yes (SLEEPS WITH OXYGEN) Cardiac: Yes Neurological: Yes Reproductive Disorders: No Gastrointestinal: No Musculoskeletal: No Arthritis, Gout Endocrine: No Cancer: No Psychosocial: No Physical Exam Vital Signs Vital Signs - First Documented 10/12/19 13:40 Temp 35.8 Pulse 63 Resp 25 B/P (MAP) 143/104 (117) Pulse Ox 96 Capillary Refill : Height, Weight, BMI Height: 5'3.00" Weight: 208lbs. 0oz. 94.177614se; BMI Method:Stated General Appearance: WD/WN, no apparent distress HEENT: PERRL/EOMI, normal ENT inspection Respiratory: no respiratory distress, no accessory muscle use Gastrointestinal: normal bowel sounds, non tender, soft Extremities: pedal edema (2+ BLE) Neurologic/Psychiatric: alert, normal mood/affect, oriented x 3 Skin: normal color, warm/dry [place] Coma Score Best Eye Response: (4) Open Spontaneously Best Verbal Response: (5) Oriented Best Motor Response: (6) Obeys Commands [place] Total: 15 Progress/Results/Core Measures Results/Orders Lab Results Laboratory Tests Test 10/12/19 14:20 10/12/19 15:49 Range/Units White Blood Count 8.3 4.3-11.0 10^3/uL Red Blood Count 3.75 L 4.35-5.85 10^6/uL Hemoglobin 11.2 L 11.5-16.0 G/DL Hematocrit 35 35-52 % Mean Corpuscular Volume 92 80-99 FL Mean Corpuscular Hemoglobin 30 25-34 PG Mean Corpuscular Hemoglobin Concent 33 32-36 G/DL Red Cell Distribution Width 15.7 H 10.0-14.5 % Platelet Count 236 130-400 10^3/uL Mean Platelet Volume 10.6 H 7.4-10.4 FL Neutrophils (%) (Auto) 66 42-75 % Lymphocytes (%) (Auto) 26 12-44 % Monocytes (%) (Auto) 7 0-12 % Eosinophils (%) (Auto) 1 0-10 % Basophils (%) (Auto) 0 0-10 % Neutrophils # (Auto) 5.4 1.8-7.8 X 10^3 Lymphocytes # (Auto) 2.2 1.0-4.0 X 10^3 Monocytes # (Auto) 0.6 0.0-1.0 X 10^3 Eosinophils # (Auto) 0.1 0.0-0.3 10^3/uL Basophils # (Auto) 0.0 0.0-0.1 10^3/uL Sodium Level 136 135-145 MMOL/L Potassium Level 3.1 L 3.6-5.0 MMOL/L Chloride Level 97 L 98-107 MMOL/L Carbon Dioxide Level 26 21-32 MMOL/L Anion Gap 13 5-14 MMOL/L Blood Urea Nitrogen 15 7-18 MG/DL Creatinine 0.76 0.60-1.30 MG/DL Estimat Glomerular Filtration Rate > 60 BUN/Creatinine Ratio 20 Glucose Level 104 70-105 MG/DL Calcium Level 10.0 8.5-10.1 MG/DL Corrected Calcium 10.2 H 8.5-10.1 MG/DL Total Bilirubin 1.0 0.1-1.0 MG/DL Aspartate Amino Transf (AST/SGOT) 22 5-34 U/L Alanine Aminotransferase (ALT/SGPT) 17 0-55 U/L Alkaline Phosphatase 117 40-136 U/L B-Type Natriuretic Peptide 112.4 H <100.0 PG/ML Total Protein 7.6 6.4-8.2 GM/DL Albumin 3.8 3.2-4.5 GM/DL Urine Color YELLOW Urine Clarity CLEAR Urine pH 7.0 5-9 Urine Specific [place] <=1.005 1.016-1.022 Urine Protein NEGATIVE NEGATIVE Urine Glucose (UA) NEGATIVE NEGATIVE Urine Ketones NEGATIVE NEGATIVE Urine Nitrite NEGATIVE NEGATIVE Urine Bilirubin NEGATIVE NEGATIVE Urine Urobilinogen 0.2 < = 1.0 MG/DL Urine Leukocyte Esterase 2+ H NEGATIVE Urine RBC (Auto) 2+ H NEGATIVE Urine RBC NONE /HPF Urine WBC 2-5 /HPF Urine Squamous Epithelial Cells RARE /HPF Urine Crystals NONE /LPF Urine Bacteria TRACE /HPF Urine Casts NONE /LPF Urine Mucus NEGATIVE /LPF Urine Trichomonas FEW H /HPF Urine Culture Indicated NO My Orders Orders - LACHELLE BECKFORD APRN Cbc With Automated Diff (10/12/19 13:49) Comprehensive Metabolic Panel (10/12/19 13:49) Ua Culture If Indicated (10/12/19 13:49) BNP (10/12/19 13:49) Ekg Tracing (10/12/19 13:49) Chest 1 View, Ap/Pa Only (10/12/19 13:49) Ct Head Wo (10/12/19 13:49) Vital Signs/I&O 10/12/19 13:40 Temp 35.8 Pulse 63 Resp 25 B/P (MAP) 143/104 (117) Pulse Ox 96 Departure Impression Primary Impression: Weakness Additional Impressions: intermittent dizziness Transient confusion Disposition: 01 HOME, SELF-CARE Condition: Stable Departure-Patient Inst. Referrals: IAN BERGER MD (PCP/Family) Primary Care Physician Copy Copies To 1: IAN BERGER MD, PETER J APRN Oct 12, 2019 13:52
[2019-10-12 14:40] LABS: BASOPHILS % (AUTO) 0 % (0-10); EOSINOPHILS # (AUTO) 0.1 10^3/uL (0.0-0.3); EOSINOPHILS % (AUTO) 1 % (0-10); HEMATOCRIT 35 % (35-52); HEMOGLOBIN 11.2 G/DL (11.5-16.0); LYMPHOCYTES # (AUTO) 2.2 X 10^3 (1.0-4.0); LYMPHOCYTES % (AUTO) 26 % (12-44); MEAN CORPUSCULAR HEMOGLOBIN 30 PG (25-34); MEAN CORPUSCULAR HGB CONC 33 G/DL (32-36); MEAN CORPUSCULAR VOLUME 92 FL (80-99); MEAN PLATELET VOLUME 10.6 FL (7.4-10.4); MONOCYTES # (AUTO) 0.6 X 10^3 (0.0-1.0); MONOCYTES % (AUTO) 7 % (0-12); NEUTROPHILS # (AUTO) 5.4 X 10^3 (1.8-7.8); NEUTROPHILS % (AUTO) 66 % (42-75); PLATELET COUNT 236 10^3/uL (130-400); RED CELL DISTRIBUTION WIDTH 15.7 % (10.0-14.5); WHITE BLOOD COUNT 8.3 10^3/uL (4.3-11.0)
[2019-10-12 14:54] LABS: ALBUMIN 3.8 GM/DL (3.2-4.5); CHLORIDE 97 MMOL/L (98-107); POTASSIUM 3.1 MMOL/L (3.6-5.0); SODIUM 136 MMOL/L (135-145)
[2019-10-12 14:57] LABS: GLUCOSE 104 MG/DL (70-105); TOTAL PROTEIN 7.6 GM/DL (6.4-8.2)
[2019-10-12 14:58] LABS: CARBON DIOXIDE 26 MMOL/L (21-32)
[2019-10-12 15:00] LABS: ALKALINE PHOSPHATASE 117 U/L (40-136); CREATININE SERUM 0.76 MG/DL (0.60-1.30); GFR ESTIMATED > 60
[2019-10-12 15:01] LABS: BUN/CREATININE RATIO 20
[2019-10-12 15:03] LABS: ALANINE AMINOTRANSFERASE 17 U/L (0-55)
--- NOTE | 2019-10-12 15:34 | Diagnostic Imaging Report ---
Clinical indication: Patient is status post fall and is a poor historian. Exam: Portable chest x-ray upright view. Comparisons: Chest x-ray dated 10/23/2017. Findings: Lungs/pleura: There is mild bibasilar atelectasis. Otherwise, lungs are clear. There is no pneumothorax. There is no pleural effusion. Mediastinum: Unremarkable. Pulmonary vasculature: Unremarkable. Heart: Stable cardiomegaly. Bones/extrathoracic soft tissue: There are degenerative spurs involving the spine.. Impression: There is no radiographic evidence of an acute cardiopulmonary process. Dictated by: Dictated on workstation # [id number]
[2019-10-12 15:56] LABS: BILIRUBIN,URINE NEGATIVE (NEGATIVE); CLARITY,URINE CLEAR; COLOR,URINE YELLOW; GLUCOSE, URINE (UA) NEGATIVE (NEGATIVE); KETONES,URINE NEGATIVE (NEGATIVE); LEUKOCYTE ESTERASE ,URINE 2+ (NEGATIVE); NITRITE,URINE NEGATIVE (NEGATIVE); PROTEIN,URINE NEGATIVE (NEGATIVE)
--- NOTE | 2019-10-12 15:56 | Diagnostic Imaging Report ---
Clinical indication: Patient is status post fall. Exam: Axial CT scan of the brain without IV contrast with coronal and sagittal reformatted images. Auto Exposure Controls were utilized during the CT exam to meet ALARA standards for radiation dose reduction. Comparison: Head CT without contrast dated 06/10/2012.. Findings: There is no evidence of acute cerebral infarct, intracranial hemorrhage, or gross mass effect. The brain parenchymal volume appears appropriate for patient's age. There is normal holland-white matter distinction. There is no significant midline shift or herniation. There is no evidence of hydrocephalus. The basal cisterns are unremarkable. The skull, extracranial soft tissue and orbits are unremarkable. There is mild mucosal thickening involving both maxillary sinuses. There is moderate consolidation involving the right frontal sinus and right ethmoid sinus region. Temporal bones show no significant abnormality. Impression: [id number] paranasal sinus disease. Otherwise, unremarkable CT scan of the brain for age. Dictated by: Dictated on workstation # [id number]
[2019-10-12 16:13] LABS: BACTERIA,URINE TRACE /HPF; SQUAMOUS EPITHELIAL CELL,UR RARE /HPF
[2019-10-12 16:14] LABS: TRICHOMONAS,URINE FEW /HPF
[2019-10-12 17:24] VITALS: BP 120/74
== END 2019-10-12 17:24 | disposition home or self-care (01) ==
LOC: EDUNIT# 13:42 → ER 13:43
DX: R53.1 Weakness (principal); R42 Dizziness and giddiness; R41.0 Disorientation, unspecified; R40.2142 Coma scale, eyes open, spontaneous, at arrival to emergency department; R40.2252 Coma scale, best verbal response, oriented, at arrival to emergency department; R40.2362 Coma scale, best motor response, obeys commands, at arrival to emergency department
CPT/HCPCS: 36415; 70450; 71045; 80053; 81000; 83880; 85025; 93005

== ENCOUNTER 2022-06-02 01:28 | Inpatient (IN) | payer MEDICARE ==
[2022-06-02] MEDS ORDERED: NS IV 1000 ML 1,000 ML IV STA ×2 (01:56→05:05)
--- NOTE | 2022-06-02 02:01 | ED General ---
General Chief Complaint: General Problems/Pain Stated Complaint: WEAKNESS Source of Information: Patient, EMS History of Present Illness Date Seen by Provider: Jun 02, 2022 Time Seen by Provider: 01:48 Initial Comments Patient is an 81-year-old female history of hypertension and prior A. fib not on chronic anticoagulation, also hypothyroidism who presents to the emergency department with a chief complaint of feeling generally weak. She lives at home alone and has family members as caregivers that come over daily to help her during the day. She has gotten so weak over the course of the last 7 days that she is now unable to get up and around on her own at all. She complains of some mild abdominal discomfort and nausea this morning. She has not really eaten much in the last couple of days. She is constipated - no bowel movement in the last 2 to 3 days. She denies black or bloody stools. No burning with urination or frequency. She does not have a productive cough, earache or sore throat. No COVID concerns. She has not missed or skipped any of her medications. Her primary care doctor has recently decreased her Synthroid from 100 mcg to 88 mcg in the last few days. She denies chest pain, diaphoresis, shortness of breath. No history of coronary artery disease. She does not see a backup sawyer. All other review of systems reviewed and negative except as stated. Timing/Duration: 1 Week Severity: Severe Associated Systoms: Malaise, Nausea/Vomiting, Weakness Allergies and Home Medications Allergies Coded Allergies: No Known Drug Allergies (Unverified , 08/29/08) Patient Home Medication List Home Medication List Reviewed: Yes Allopurinol (Zyloprim) 300 Mg Tab, (Reported) Entered as Reported by: KERRY HOUGH on 08/29/08 153 Ascorbic Acid (Vitamin C) 500 Mg Capsule.sa, (Reported) Entered as Reported by: KERRY HOUGH on 08/29/08 153 Aspirin ([facility] Aspirin) 81 Mg Tab.chew, (Reported) Entered as Reported by: KERRY HOUGH on 08/29/08 1540 Fluconazole (Diflucan 150 Mg) 150 Mg Tablet, 1 EACH PO ONCE, (Reported) Entered as Reported by: HEATHER TREJO on 06/20/12 174 Furosemide (Furosemide) 80 Mg Tablet, (Reported) Entered as Reported by: KERRY HOUGH on 08/29/08 153 Levothyroxine Sodium (Synthroid) 125 Mcg Tablet, (Reported) Entered as Reported by: KERRY HOUGH on 08/29/08 153 Lisinopril (Zestril) 10 Mg Tablet, 10 MG PO DAILY Prescribed by: MIS BAILON on 08/29/08 1741 Multiv,Ca,Iron,Min/Fa/Phytoste (Centrum Cardio Tablet) 1 Each Tablet, (Reported) Entered as Reported by: KERRY HOUGH on 08/29/08 154 Nitroglycerin (Nitrostat) 0.4 Mg Subl, (Reported) Entered as Reported by: KERRY HOUGH on 08/29/08 154 Pantoprazole Sodium (Pantoprazole Sodium) 40 Mg Tablet., (Reported) Entered as Reported by: KERRY HOUGH on 08/29/08 153 Potassium Chloride (Klor-Con 10 Tablet) 10 Meq Tablet.sa, (Reported) Entered as Reported by: KERRY HOUGH on 08/29/08 153 Propranolol Hcl (Inderal La) 160 Mg Cap.sa.24h, (Reported) Entered as Reported by: KERRY HOUGH on 08/29/08 153 Terazosin Hcl (Hytrin 2 Mg) 2 Mg Cap, (Reported) Entered as Reported by: KERYR HOUGH on 08/29/08 153 Review of Systems Review of Systems Constitutional: see HPI, malaise EENTM: no symptoms reported Respiratory: no symptoms reported Cardiovascular: no symptoms reported Gastrointestinal: abdominal pain, loss of appetite, nausea Genitourinary: no symptoms reported Musculoskeletal: no symptoms reported Skin: no symptoms reported Psychiatric/Neurological: Weakness (generalized weakness) All Other Systems Reviewed Negative Unless Noted: Yes Past Qmuaaiw-Mwowzm-Soxzju Hx Past Medical History Surgeries: Yes Respiratory: Yes (SLEEPS WITH OXYGEN) Cardiac: Yes Neurological: Yes Reproductive Disorders: No Gastrointestinal: No Musculoskeletal: No Arthritis, Gout Endocrine: No Cancer: No Psychosocial: No Physical Exam Vital Signs Vital Signs - First Documented Capillary Refill : Height, Weight, BMI Height: 5'3.00" Weight: 208lbs. 0oz. 94.792243ok; 39.00 BMI Method:Stated General Appearance: No Apparent Distress, WD/WN, Obese Eyes: Bilateral Eye PERRL, Bilateral Eye EOMI, Bilateral Eye Conjunctivae Pale HEENT: PERRL/EOMI, Pale Conjunctivae (L), Pale Conjunctivae (R), Other (dry oral mucosa) Neck: Normal Inspection Respiratory: Lungs Clear, Normal Breath Sounds, No Accessory Muscle Use, No Respiratory Distress Cardiovascular: Irregularly Irregular, Other (BP 80 systolic; [id number]) Gastrointestinal: Normal Bowel Sounds, Soft, Distended, Tenderness (mild diffuse tenderness, no rebound, involuntary guarding.) Extremity: Normal Inspection, Pedal Edema Neurologic/Psychiatric: Alert, Oriented x3, No Motor/Sensory Deficits, Depressed Affect Skin: Cool, Pallor Focused Exam Lactate Level Lactic Acid Level Progress/Results/Core Measures Suspected Sepsis SIRS Temperature: Pulse: Respiratory Rate: Laboratory Tests 06/02/22 02:10: White Blood Count 13.9H Blood Pressure / Mean: Laboratory Tests 06/02/22 02:10: Creatinine 1.41H, INR Comment 1.2, Platelet Count 274, Total Bilirubin 0.9 Results/Orders Lab Results Laboratory Tests Test 06/02/22 02:10 Range/Units White Blood Count 13.9 H 4.3-11.0 10^3/uL Red Blood Count 4.04 3.80-5.11 10^6/uL Hemoglobin 12.5 11.5-16.0 g/dL Hematocrit 38 35-52 % Mean Corpuscular Volume 93 80-99 fL Mean Corpuscular Hemoglobin 31 25-34 pg Mean Corpuscular Hemoglobin Concent 33 32-36 g/dL Red Cell Distribution Width 14.7 H 10.0-14.5 % Platelet Count 274 130-400 10^3/uL Mean Platelet Volume 10.4 9.0-12.2 fL Immature Granulocyte % (Auto) 2 % Neutrophils (%) (Auto) 78 H 42-75 % Lymphocytes (%) (Auto) 15 12-44 % Monocytes (%) (Auto) 5 0-12 % Eosinophils (%) (Auto) 0 0-10 % Basophils (%) (Auto) 0 0-10 % Neutrophils # (Auto) 10.8 H 1.8-7.8 10^3/uL Lymphocytes # (Auto) 2.1 1.0-4.0 10^3/uL Monocytes # (Auto) 0.7 0.0-1.0 10^3/uL Eosinophils # (Auto) 0.0 0.0-0.3 10^3/uL Basophils # (Auto) 0.0 0.0-0.1 10^3/uL Immature Granulocyte # (Auto) 0.3 H 0.0-0.1 10^3/uL Prothrombin Time 15.2 H 12.2-14.7 SEC INR Comment 1.2 0.8-1.4 Activated Partial Thromboplast Time 30 24-35 SEC Sodium Level 135 135-145 MMOL/L Potassium Level 3.6-5.0 MMOL/L Chloride Level 97 L 98-107 MMOL/L Carbon Dioxide Level 19 L 21-32 MMOL/L Anion Gap 19 H 5-14 MMOL/L Blood Urea Nitrogen 32 H 7-18 MG/DL Creatinine 1.41 H 0.60-1.30 MG/DL Estimat Glomerular Filtration Rate 37 BUN/Creatinine Ratio 23 Glucose Level 119 H 70-105 MG/DL Calcium Level 10.3 H 8.5-10.1 MG/DL Corrected Calcium 10.9 H 8.5-10.1 MG/DL Total Bilirubin 0.9 0.1-1.0 MG/DL Aspartate Amino Transf (AST/SGOT) 90 H 5-34 U/L Alanine Aminotransferase (ALT/SGPT) 48 0-55 U/L Alkaline Phosphatase 109 40-136 U/L Total Protein 8.0 6.4-8.2 GM/DL Albumin 3.2 3.2-4.5 GM/DL Free Thyroxine 1.06 0.70-1.48 NG/DL TSH Wilkinson Testing 13.86 H 0.35-4.94 UIU/ML My Orders Orders - JAM VENEGAS MD Ed Iv/Invasive Line Start (06/02/22 01:56) Cbc With Automated Diff (06/02/22 01:56) Comprehensive Metabolic Panel (06/02/22 01:56) Ua Culture If Indicated (06/02/22 01:56) Chest 1 View, Ap/Pa Only (06/02/22 01:56) Ekg Tracing (06/02/22 01:56) Protime With Inr (06/02/22 01:56) Partial Thromboplastin Time (06/02/22 01:56) Thyroid Analyzer (06/02/22 01:56) Fecal Occult Bedside (06/02/22 01:56) Ns Iv 1000 Ml (Sodium Chloride 0.9%) (06/02/22 01:56) Ondansetron Oral Dissolve Tab (Zofran (06/02/22 02:13) Vital Signs/I&O 06/02/22 06/02/22 01:28 01:28 Temp 35.6 Pulse 96 Resp 16 B/P (MAP) 78/51 (60) Pulse Ox 97 O2 Delivery Room Air Room Air Capillary Refill : Progress Note #1: Time: 04:15 Progress Note notified by nursing staff patient pulled her peripheral line in the left AC. She had MULTIPLE peripheral IV start attempts. US used to assess for IJ on both right and left sides. I was not confident in anatomy and called Dr Albrecht - general surgery for central line placement. Patient BP currently [address] Albrecht finished right IJ line placement. No complications during placement. CXR post placement, no ptx. line is in position Progress Note #2: Time: 05:31 Progress Note Notified by nursing staff that patient's BP dropping into the 60's systolic af ter central line placed. Cuff readjusted multiple times and BP consistent. She is still mentating normally. lactic acid resulted at 13. I called eICU for consult. Starting Levophed. Patient elects to be a full code. No clear idea of infectious etiology. Will start broad spectrum abx pending blood and urine cultures. 0540 Went in with nurse as she was starting levophed and antibiotics - she was unresponsive. would not respond to sternal rub. poor resp effort. HR 90'a Afib - no bradycardia. never lost pulse. noted rightward gaze deviation. Intubation procedure started. Intubated with rocuronium and etomidate. 7.5 ett first pass; +CO2 color change. bilateral breath sounds. will order ABG. Reassessed abdomen - appears more distended. Quiet bowel sounds. NGT to be placed. Will send her for head CT and Abd/pelvis without contrast. also post intubation CXR. ECG Initial ECG Impression Date: Jun 02, 2022 Initial ECG Impression Time: 02:16 Initial ECG Rate: 112 Initial ECG Rhythm: A Fib/Flutter Initial ECG Impression: Nonspecific Changes, Atrial Fibrillation w/RVR Comment waves inferiorly and laterally; no ST segment elevation or depression Diagnostic Imaging Diagonstic Imaging: Xray Plain Films/CT/US/NM/MRI: chest Comments chest xray - interpreted by me - no effusion or infiltrate Diagonstic Imaging: Xray Plain Films/CT/US/NM/MRI: chest Comments post line placement - line in good position. no ptx Departure Communication (Admissions) Time/Spoke to Admitting Phy: 03:[address] Catherine; Admit IP to ICU Impression Primary Impression: Hypotension Qualified Codes: I95.9 - Hypotension, unspecified Additional Impressions: Hypothyroidism Qualified Codes: E03.9 - Hypothyroidism, unspecified Atrial fibrillation with RVR UTI (urinary tract infection) Qualified Codes: N39.0 - Urinary tract infection, site not specified Acute respiratory failure Disposition: ADMITTED INPATIENT Condition: Critical Admissions Decision to Admit Reason: Admit from ER (General) Decision to Admit/Date: Jun 02, 2022 Time/Decision to Admit Time: 03:15 Departure-Patient Inst. Referrals: IAN CATHERINE MD (PCP/Family) Primary Care Physician JAM VENEGAS MD Jun 02, 2022 02:01
[2022-06-02] MEDS ORDERED: ONDANSETRON 4 MG (ZOFRAN) ORAL DISSOLVE TAB PO STA (02:13)
[2022-06-02 02:20] LABS: BASOPHILS % (AUTO) 0 % (0-10); EOSINOPHILS % (AUTO) 0 % (0-10); HEMATOCRIT 38 % (35-52); HEMOGLOBIN 12.5 g/dL (11.5-16.0); LYMPHOCYTES # (AUTO) 2.1 10^3/uL (1.0-4.0); LYMPHOCYTES % (AUTO) 15 % (12-44); MEAN CORPUSCULAR HEMOGLOBIN 31 pg (25-34); MEAN CORPUSCULAR HGB CONC 33 g/dL (32-36); MEAN CORPUSCULAR VOLUME 93 fL (80-99); MEAN PLATELET VOLUME 10.4 fL (9.0-12.2); MONOCYTES # (AUTO) 0.7 10^3/uL (0.0-1.0); MONOCYTES % (AUTO) 5 % (0-12); NEUTROPHILS # (AUTO) 10.8 10^3/uL (1.8-7.8); NEUTROPHILS % (AUTO) 78 % (42-75); PLATELET COUNT 274 10^3/uL (130-400); WHITE BLOOD COUNT 13.9 10^3/uL (4.3-11.0)
[2022-06-02 02:27] LABS: ALBUMIN 3.2 GM/DL (3.2-4.5); CHLORIDE 97 MMOL/L (98-107); SODIUM 135 MMOL/L (135-145)
[2022-06-02 02:29] LABS: CALCIUM 10.3 MG/DL (8.5-10.1)
[2022-06-02 02:30] LABS: GLUCOSE 119 MG/DL (70-105)
[2022-06-02 02:31] LABS: CARBON DIOXIDE 19 MMOL/L (21-32); INR 1.2 (0.8-1.4); PROTHROMBIN TIME PATIENT 15.2 SEC (12.2-14.7)
[2022-06-02 02:32] LABS: BILIRUBIN,TOTAL 0.9 MG/DL (0.1-1.0)
[2022-06-02 02:33] LABS: ALKALINE PHOSPHATASE 109 U/L (40-136); CREATININE SERUM 1.41 MG/DL (0.60-1.30); GFR ESTIMATED 37
[2022-06-02 02:35] LABS: BUN/CREATININE RATIO 23
[2022-06-02 02:36] LABS: ALANINE AMINOTRANSFERASE 48 U/L (0-55)
[2022-06-02 02:56] LABS: TSH (THYROID ANALYZER) 13.86 UIU/ML (0.35-4.94)
[2022-06-02] MEDS ORDERED: APIXABAN 2.5 MG (ELIQUIS) TABLET PO ONE (03:30)
[2022-06-02 04:05] LABS: BILIRUBIN,URINE 2+ (NEGATIVE); CLARITY,URINE CLOUDY; COLOR,URINE YELLOW; GLUCOSE, URINE (UA) TRACE (NEGATIVE); KETONES,URINE TRACE (NEGATIVE); LEUKOCYTE ESTERASE ,URINE 1+ (NEGATIVE); NITRITE,URINE NEGATIVE (NEGATIVE); PROTEIN,URINE 2+ (NEGATIVE)
[2022-06-02 04:08] LABS: BACTERIA,URINE LARGE /HPF; HYALINE CASTS, URINE 0-2 /LPF; RBC,URINE RARE /HPF
[2022-06-02] MEDS ORDERED: cefTRIAXone 1 GM PRE-MIX 50 ML IV ONE (04:30)
[2022-06-02] MEDS ORDERED: NOREPINEPHRINE 8 MG/250 ML 250 ML IV SCH ×2 (05:30→08:00)
[2022-06-02] MEDS ORDERED: PIPERACILLIN SODIUM/TAZOBACTAM 4.5 GM in NS (IVPB) 100 ML IV ONE (05:45)
--- NOTE | 2022-06-02 05:45 | Diagnostic Imaging Report ---
INDICATION: weakness COMPARISON: 10/12/2019 FINDINGS: Single frontal view of the chest demonstrates moderate cardiomegaly. Pulmonary vasculature, however is within normal limits. The lungs are well aerated and clear. No large pleural effusion or pneumothorax is seen. The visualized osseous structures show no acute abnormalities. IMPRESSION: 1. Cardiomegaly, but no evidence of failure or focal infiltrate. Dictated by: Dictated on workstation # [id number]
--- NOTE | 2022-06-02 05:47 | Diagnostic Imaging Report ---
INDICATION: POST CENTRAL LINE PLACEMENT COMPARISON: Earlier same day. FINDINGS: Single frontal view of the chest demonstrates moderate cardiomegaly. Pulmonary vasculature remains within normal limits. Right internal jugular central venous catheter seen with tip in the low SVC near the cavoatrial junction. The lungs are well aerated and clear. No large pleural effusion or pneumothorax is seen. The visualized osseous structures show no acute abnormalities. IMPRESSION: 1. New right internal jugular central venous catheter with tip in the low SVC. 2. Persistent cardiomegaly. Dictated by: Dictated on workstation # [id number]
[2022-06-02] MEDS ORDERED: PROPOFOL DRIP (ICU) 0 ML IV ONE (06:18)
[2022-06-02] MEDS ORDERED: NS IV 500 ML 500 ML IV PRN (07:00)
[2022-06-02 07:11] VITALS: BP 53/37
--- NOTE | 2022-06-02 07:12 | Diagnostic Imaging Report ---
PROCEDURE: CT abdomen and pelvis without contrast. TECHNIQUE: Multiple contiguous axial images were obtained through the abdomen and pelvis without the use of intravenous contrast. Auto Exposure Controls were utilized during the CT exam to meet ALARA standards for radiation dose reduction. INDICATION: Unresponsive patient COMPARISON: None FINDINGS: Included portions lung bases show small left effusion and mild cardiomegaly. There is colonic diverticulosis, but no CT evidence of acute diverticulitis. Normal appendix cannot be adequately identified, but there is no pericecal inflammation. Several small droplets of free air are noted within the lower abdomen and pelvis. Source of the free air is indeterminate based on this exam. There is trace free fluid within the right lower abdominal quadrant as well (image 125, series 2). No loculated fluid collection is seen. The kidneys, adrenal glands, spleen, pancreas, and liver have an unremarkable CT appearance. No abnormal mesenteric or retroperitoneal adenopathy is seen. There is moderate diffuse calcified aortic and arterial atherosclerosis. Osseous structures show no acute abnormality. CT PELVIS: Eddy catheter is present within urinary bladder. Urinary bladder is decompressed. There is no loculated fluid collection, free fluid or free air within the pelvis. No abnormal lymph nodes are seen. Osseous structures show no acute abnormalities. IMPRESSION: 1. Scattered pneumoperitoneum within the midline lower abdomen and upper pelvis. There is small amount of free fluid within the right lower abdominal quadrant as well. Source of the free air is indeterminate, but raises concern for perforated hollow viscus. Surgical consultation is advised. 2. Colonic diverticulosis, but no CT evidence acute diverticulitis. [facility] by felix at 7:10am. Dictated by: Dictated on workstation # [id number]
--- NOTE | 2022-06-02 07:22 | Diagnostic Imaging Report ---
INDICATION: unresponsive TECHNIQUE: Routine non contrast-enhanced axial images were obtained from the skull base to the vertex. Auto Exposure Controls were utilized during the CT exam to meet ALARA standards for radiation dose reduction COMPARISON: 10/12/2019 FINDINGS: The ventricles and cortical sulci are diffusely prominent, compatible with age-related volume loss. There are confluent areas of abnormal, low attenuation in the periventricular white matter. This is consistent with chronic small vessel ischemic changes. There is no midline shift or mass-effect. No acute intra-axial hemorrhage is seen. There are no abnormal areas of increased or decreased density to suggest acute hemorrhage or edema. No extra-axial masses or collections are present. The bony calvarium is intact. There is mild soft tissue emphysema within the lathe tender spaces, left greater than right. No loculated fluid collection is seen. Paranasal sinuses show profound mucosal thickening in the right maxillary sinus and opacification anterior right ethmoid air cells. Small air-fluid levels also present within the right maxillary sinus. Mastoid air cells are clear.. IMPRESSION: 1. No acute intracranial abnormality. No CT evidence of mass, acute infarct or intracranial hemorrhage. 2. Chronic small vessel ischemic changes in deep white matter. 3. Soft tissue emphysema within the lathe tender spaces, left greater than right. Correlation with traumatic intubation is advised. Otherwise, the source of the gas is unknown based on this exam. Report was called to [facility] nurse Raya by felix at 7:20am. Dictated by: Dictated on workstation # [id number]
[2022-06-02] MEDS ORDERED: NOREPINEPHRINE 16 MG/250 ML DRIP IV SCH ×2 (07:30)
[2022-06-02] MEDS ORDERED: HYDROCORTISONE 100 MG/2 ML (Solu-CORTEF) VIAL IV SCH (07:30)
[2022-06-02] MEDS ORDERED: NS IV 1000 ML 1,000 ML IV SCH (08:00)
--- NOTE | 2022-06-02 08:10 | Diagnostic Imaging Report ---
INDICATION: Respiratory failure. COMPARISON: Earlier same day FINDINGS: Single frontal radiographic view of the chest was obtained and demonstrates indwelling endotracheal tube with tip below the clavicular heads and above the melissa. Gastric tube extends inferiorly beyond the ijldn-to-fluj. Right internal jugular central venous catheter is again identified in stable position. Cardiac silhouette remains enlarged. Pulmonary vasculature is within normal limits. Lungs are clear. There is no large effusion or pneumothorax. Osseous structures show no acute abnormalities. IMPRESSION: 1. Lines and tubes as above. 2. Persistent mild cardiomegaly. Dictated by: Dictated on workstation # [id number]
[2022-06-02 08:15] VITALS: BP 118/94
[2022-06-02] MEDS ORDERED: SODIUM BICARB 8.4% 50 MEQ/50 ML (ABBOTT) SYR ONE ×2 (08:24→08:26)
[2022-06-02] MEDS ORDERED: PHENYLEPHRINE DRIP 250 ML IV ONE (08:26)
[2022-06-02] MEDS ORDERED: CALC GLUC 1 GM/100 ML IVPB 100 ML IV ONE (08:30)
--- NOTE | 2022-06-02 08:31 | History & Physical ---
History of Present Illness History of Present Illness Reason for visit/HPI Patient is a 81 y/o F with history of HTN, Afib, and hypothyroidism who presented to the ER earlier this morning complaining of weakness, constipation, and abdominal pain onset about a week ago. Per ER note, She lives at home alone and has family members as caregivers that come over daily to help her during the day. She has gotten so weak over the course of the last 7 days that she is now u nable to get up and around on her own at all. She also reported not eating much in recent days. Dr. Catherine also recently decreased her Synthroid from 100 mcg to 88 mcg in the last few days. There were several unsuccessful attempts to start a peripheral IV. Dr. Albrecht was able to put in a IJ line without complications. Repeat CT abd showed perforated bowel. She became hypotensive in the ER. ER labs revealed leukocytosis, lactic acid of 13 and TSH of 13.8. Shortly after, when nurse was administering abx and Levophed, patient became unresponsive to sternal rub. She was transferred to ICU and intubated. ART line was also placed by anesthesia. Patient coded again in the ICU and resuscitation efforts were initiated. Given her present state, her daughter elects patient code status be changed to DNR. She will be coming by later to see her mother. Date of Admission Jun 02, 2022 at 03:13 Date Seen by a Provider: Jun 02, 2022 Time Seen by a Provider: 07:45 I consulted on this patient on 06/02/22 08:29 Attending Physician Maria Fernanda Catherine MD Admitting Physician Admitting Physician: Maria Fernanda Catherine MD Attending Physician: Maria Fernanda Catherine MD Consult Allergies and Home Medications Allergies Coded Allergies: No Known Drug Allergies (Unverified , 08/29/08) Patient Home Medication List Home Medication List Reviewed: Yes Allopurinol (Zyloprim) 300 Mg Tab, (Reported) Entered as Reported by: KERRY HOUGH on 08/29/08 1535 Ascorbic Acid (Vitamin C) 500 Mg Capsule.sa, (Reported) Entered as Reported by: KERRY HOUGH on 08/29/08 1538 Aspirin ([facility] Aspirin) 81 Mg Tab.chew, (Reported) Entered as Reported by: KERRY HOUGH on 08/29/08 1540 Fluconazole (Diflucan 150 Mg) 150 Mg Tablet, 1 EACH PO ONCE, (Reported) Entered as Reported by: HEATHER TREJO on 06/20/12 174 Furosemide (Furosemide) 80 Mg Tablet, (Reported) Entered as Reported by: KERRY HOUGH on 08/29/08 153 Levothyroxine Sodium (Synthroid) 125 Mcg Tablet, (Reported) Entered as Reported by: KERRY HOUGH on 08/29/08 153 Lisinopril (Zestril) 10 Mg Tablet, 10 MG PO DAILY Prescribed by: MIS BAILON on 08/29/08 174 Multiv,Ca,Iron,Min/Fa/Phytoste (Centrum Cardio Tablet) 1 Each Tablet, (Reported) Entered as Reported by: KERRY HOUGH on 08/29/08 154 Nitroglycerin (Nitrostat) 0.4 Mg Subl, (Reported) Entered as Reported by: KERRY HOUGH on 08/29/08 154 Pantoprazole Sodium (Pantoprazole Sodium) 40 Mg Tablet.dr, (Reported) Entered as Reported by: KERRY HOUGH on 08/29/08 153 Potassium Chloride (Klor-Con 10 Tablet) 10 Meq Tablet.sa, (Reported) Entered as Reported by: KERRY HOUGH on 08/29/08 1537 Propranolol Hcl (Inderal La) 160 Mg Cap.sa.24h, (Reported) Entered as Reported by: KERRY HOUGH on 08/29/08 153 Terazosin Hcl (Hytrin 2 Mg) 2 Mg Cap, (Reported) Entered as Reported by: KERRY HOUGH on 08/29/08 153 Past Qjtubcr-Uoxnwx-Xicmch Hx Immunizations Up To Date Date of Influenza Vaccine: Jan 09, 2012 Date of Pneumonia Vaccine: May 10, 2010 Current Status Primary Language: [place] Preferred Spoken Language: [place] Is interpretation needed?: No Past Medical History Atrial Fibrillation, Hypertension Arthritis, Gout Hypothyroidsim Review of Systems ROS-Unable to Obtain: Patient was intubated and sedated. Physical Exam Vital Signs Vital Signs - First Documented 06/02/22 06/02/22 04:03 07:11 O2 Flow Rate 2.00 FiO2 100 Capillary Refill : Less Than 3 Seconds Height, Weight, BMI Height: 5'3.00" Weight: 208lbs. 0oz. 94.423514ia; 39.00 BMI Method:Stated General Appearance: Obese, Severe Distress Respiratory: Accessory Muscle Use, Respiratory Distress Cardiovascular: Irregularly Irregular (new onset Afib), Tachycardia (105-111), Other (BP fluctuating - systolic ranging from 53-80) Gastrointestinal: Soft, Distended Extremity: Swelling Skin: Cool, Ecchymosis (under bilateral breasts and over the upper abdomen), Mottled, Other (skin is dry and rubbery to touch) Assessment/Plan Assessment and Plan Acute Respiratory Failure Patient was admitted to ICU and Intubated Septic Shock Elevated WBC 13.9 Hypotension - systolic in 50-60s Tachycardia Zosyn given Perforated Bowel CT reading from ER shows scattered pneumoperitoneum within the midline lower abdomen and upper pelvis. There is small amount of free fluid within the RLQ. Source of the free air is indeterminate, but raises concern for perforated hollow viscus. Hypotension Epi given at time of code New Onset Atrial Fibrillation Apixaban given Lactic Acidosis Lactic Acid found to be 13 Hyperkalemia Hypothyroidism Acute Renal Failure Patient code status changed to DNR with comfort care only. CHELY NORTON Jun 02, 2022 08:31
[2022-06-02] MEDS ORDERED: CATHETER FLUSH 10 ML SYR IVP PRN (08:45)
--- NOTE | 2022-06-02 08:48 | Consultation - Surgery ---
VALENTÍN GARCIA 06/02/22 0848: History of Present Illness History of Present Illness Patient Consulted On(trav/time) 06/02/22 08:42 Date Seen by Provider: Jun 02, 2022 Time Seen by Provider: 04:30 History of Present Illness Surgical consultation requested for Central line placement. Pt is an 81 YO female who presented to ED c/o generalized weakness, dizziness, and hair loss. She lives alone and has felt more weak for x 1 week. She had no bowel movement for 2 days, with some very mild nausea. In the ED her systolic BP dropped to 70s, central line was placed at this time. She was not complaining of any abdominal pain and her abdominal exam was unremarkable. She has known hypothryoidsim. She denies fever, chills, vomiting, diarrhea, shortness of breath and chest pain. Allergies and Home Medications Allergies Coded Allergies: No Known Drug Allergies (Unverified , 08/29/08) Patient Home Medication List Home Medication List Reviewed: Yes Allopurinol (Zyloprim) 300 Mg Tab, (Reported) Entered as Reported by: KERRY HOUGH on 08/29/08 153 Ascorbic Acid (Vitamin C) 500 Mg Capsule.sa, (Reported) Entered as Reported by: KERRY HOUGH on 08/29/08 153 Aspirin ([facility] Aspirin) 81 Mg Tab.chew, (Reported) Entered as Reported by: KERRY HOUGH on 08/29/08 154 Fluconazole (Diflucan 150 Mg) 150 Mg Tablet, 1 EACH PO ONCE, (Reported) Entered as Reported by: HEATHER TREJO on 06/20/12 174 Furosemide (Furosemide) 80 Mg Tablet, (Reported) Entered as Reported by: KERRY HOUGH on 08/29/08 153 Levothyroxine Sodium (Synthroid) 125 Mcg Tablet, (Reported) Entered as Reported by: KERRY HOUGH on 08/29/08 153 Lisinopril (Zestril) 10 Mg Tablet, 10 MG PO DAILY Prescribed by: MIS BAILON on 08/29/08 174 Multiv,Ca,Iron,Min/Fa/Phytoste (Centrum Cardio Tablet) 1 Each Tablet, (Reported) Entered as Reported by: KERRY HOUGH on 08/29/08 154 Nitroglycerin (Nitrostat) 0.4 Mg Subl, (Reported) Entered as Reported by: KERRY HOUGH on 08/29/08 154 Pantoprazole Sodium (Pantoprazole Sodium) 40 Mg Tablet., (Reported) Entered as Reported by: KERRY HOUGH on 08/29/08 153 Potassium Chloride (Klor-Con 10 Tablet) 10 Meq Tablet.sa, (Reported) Entered as Reported by: KERRY HOUGH on 08/29/08 1537 Propranolol Hcl (Inderal La) 160 Mg Cap.sa.24h, (Reported) Entered as Reported by: KERRY HOUGH on 08/29/08 153 Terazosin Hcl (Hytrin 2 Mg) 2 Mg Cap, (Reported) Entered as Reported by: KERRY HOUGH on 08/29/08 153 Past Ejrxuyi-Sqhozp-Apqjjs Hx Patient Social History 2nd Hand Smoke Exposure: No Immunizations Up To Date Date of Pneumonia Vaccine: May 10, 2010 Date of Influenza Vaccine: Jan 09, 2012 Respiratory History of Respiratory Disorde: Yes (SLEEPS WITH OXYGEN) Cardiovascular History of Cardiac Disorders: Yes Neurological History of Neurological Disord: Yes Reproductive System Hx Reproductive Disorders: No Gastrointestinal History of Gastrointestinal Di: No Musculoskeletal History of Musculoskeletal Dis: No Musculoskeletal Disorders: Arthritis, Gout Endocrine History of Endocrine Disorders: Yes Endocrine Disorders: Hypothyroidsim Cancer History of Cancer: No Psychosocial History of Psychiatric Problem: No Review of Systems-General Constitutional: No chills; dizziness; No fever; weakness, other (hair loss) EENTM: No double vision, No mouth pain, No throat pain Respiratory: No cough, No dyspnea on exertion Cardiovascular: No chest pain Gastrointestinal: No abdominal pain, No diarrhea, No loss of appetite; nausea (mild); No vomiting Genitourinary: No decreased output, No dysuria, No frequency : No Musculoskeletal: No back pain Skin: dryness, other (cold skin) Psychiatric/Neurological: Denies Anxiety, Denies Depressed All Other Systems Reviewed Negative Unless Noted: Yes Physical Exam-General Problems Physical Exam Vital Signs Vital Signs - First Documented 06/02/22 06/02/22 04:03 07:11 O2 Flow Rate 2.00 FiO2 100 Capillary Refill : Less Than 3 Seconds General Appearance: mild distress (SPB 70s), obese Eyes: Bilateral Eye PERRL, Bilateral Eye EOMI, Bilateral Eye Conjunctivae Pale HEENT: PERRL/EOMI, pale conjunctivae (R), pale conjunctivae (L) Neck: non-tender, supple Respiratory: chest non-tender, no respiratory distress, no accessory muscle use Cardiovascular: No no JVD; tachycardia Peripheral Pulses: 2+ Radial Pulses (R), 2+ Radial Pulses (L) Gastrointestinal: normal bowel sounds, non tender, soft; No distended, No guarding Rectal: deferred Back: no CVA tenderness Extremities: no calf tenderness; No calf tenderness Neurologic/Psychiatric: alert, normal mood/affect, oriented x 3 Skin: cool, pallor Lymphatic: no adenopathy Data Review Labs Laboratory Tests 06/02/22 02:10: White Blood Count 13.9H, Red Blood Count 4.04, Hemoglobin 12.5, Hematocrit 38, Mean Corpuscular Volume 93, Mean Corpuscular Hemoglobin 31, Mean Corpuscular Hemoglobin Concent 33, Red Cell Distribution Width 14.7H, Platelet Count 274, Mean Platelet Volume 10.4, Immature Granulocyte % (Auto) 2, Neutrophils (%) (Auto) 78H, Lymphocytes (%) (Auto) 15, Monocytes (%) (Auto) 5, Eosinophils (%) (Auto) 0, Basophils (%) (Auto) 0, Neutrophils # (Auto) 10.8H, Lymphocytes # (Auto) 2.1, Monocytes # (Auto) 0.7, Eosinophils # (Auto) 0.0, Basophils # (Auto) 0.0, Immature Granulocyte # (Auto) 0.3H, Prothrombin Time 15.2H, INR Comment 1.2, Activated Partial Thromboplast Time 30, Sodium Level 135, Potassium Level , Chloride Level 97L, Carbon Dioxide Level 19L, Anion Gap 19H, Blood Urea Nitrogen 32H, Creatinine 1.41H, Estimat Glomerular Filtration Rate 37, BUN/Creatinine Ratio 23, Glucose Level 119H, Calcium Level 10.3H, Corrected Calcium 10.9H, Total Bilirubin 0.9, Aspartate Amino Transf (AST/SGOT) 90H, Alanine Aminotransferase (ALT/SGPT) 48, Alkaline Phosphatase 109, Total Protein 8.0, Albumin 3.2, Free Thyroxine 1.06, TSH [place] Testing 13.86H 06/02/22 03:55: Urine Color YELLOW, Urine Clarity CLOUDY, Urine pH 5.0, Urine Specific [place] >=1.030, Urine Protein 2+H, Urine Glucose (UA) TRACEH, Urine Ketones TRACEH, Urine Nitrite NEGATIVE, Urine Bilirubin 2+H, Urine Urobilinogen 1.0, Urine Leukocyte Esterase 1+H, Urine RBC (Auto) 1+H, Urine RBC RARE, Urine WBC 2-5, Urine Squamous Epithelial Cells 2-5, Urine Crystals NONE, Urine Bacteria LARGEH, Urine Casts PRESENT, Urine Hyaline Casts 0-2H, Urine Mucus NEGATIVE, Urine Culture Indicated YES 06/02/22 04:50: Potassium Level 5.0, Lactic Acid Level 13.08*H Radiology [facility] [employer] [facility] [place], [place] NAME: AYLEEN GREER [facility] REC#: [id number] PT STATUS: ADM IN : 1940 PHYSICIAN: JAM VENEGAS MD ADMIT DATE: 06/02/22/ICU Draft Date of Exam:06/02/22 CT ABDOMEN/PELVIS WO PROCEDURE: CT abdomen and pelvis without contrast. TECHNIQUE: Multiple contiguous axial images were obtained through the abdomen and pelvis without the use of intravenous contrast. Auto Exposure Controls were utilized during the CT exam to meet ALARA standards for radiation dose reduction. INDICATION: Unresponsive patient COMPARISON: None FINDINGS: Included portions lung bases show small left effusion and mild cardiomegaly. There is colonic diverticulosis, but no CT evidence of acute diverticulitis. Normal appendix cannot be adequately identified, but there is no pericecal inflammation. Several small droplets of free air are noted within the lower abdomen and pelvis. Source of the free air is indeterminate based on this exam. There is trace free fluid within the right lower abdominal quadrant as well (image 125, series 2). No loculated fluid collection is seen. The kidneys, adrenal glands, spleen, pancreas, and liver have an unremarkable CT appearance. No abnormal mesenteric or retroperitoneal adenopathy is seen. There is moderate diffuse calcified aortic and arterial atherosclerosis. Osseous structures show no acute abnormality. CT PELVIS: Eddy catheter is present within urinary bladder. Urinary bladder is decompressed. There is no loculated fluid collection, free fluid or free air within the pelvis. No abnormal lymph nodes are seen. Osseous structures show no acute abnormalities. IMPRESSION: 1. Scattered pneumoperitoneum within the midline lower abdomen and upper pelvis. There is small amount of free fluid within the right lower abdominal quadrant as well. Source of the free air is indeterminate, but raises concern for perforated hollow viscus. Surgical consultation is advised. 2. Colonic diverticulosis, but no CT evidence acute diverticulitis. Report was called to ICU Located Within [facility] Raya, nurse by waqar at 7:10am. Dictated on workstation # [id number] Dict: 06/02/22 0657 Trans: 06/02/22 0711 [id number] [id number] Interpreted by: CRISTO PARDO MD Electronically signed by: Assessment/Plan Assessment/Plan Admission Diagonstesha Central line placement - due to systolic BP in 70s Hypothyroidism Pt was stable with non-remarkable abdominal exam when left ED at 0445, with central line in place. According to ED nurse, at 0545 pt became unresponsive with subsequent intubation . ED labs revealed leukocytosis, lactic acid of 13 and TSH of 13.8. She was found to be in new onset A-fib and tachycardic with pressures as low as mid 80- 90s. She was then transferred to ICU with CT of head and Abdomen pelvis, en route. ED Abdominal CT indicated very minimal free air in the abdomen. Dr. Rosa went to ICU to re-evaluate pt. Abdomen was soft. 0832 pt began to code and subsequent compressions were started. 0834 compressions and coding was stopped per family request, with subsequent demise. NANCY ROSA DO 06/02/22 1143: History of Present Illness History of Present Illness History of Present Illness Consult requested by Dr. Venegas for central line placement. Patient is an 81 year old female who presented to ED with generalized weakness and dizziness. SHe has had increasing loss of hair and she reports having hypothryoidism. Patient states she has slight nausea. Her systolic blood pressures have been in the 70's and unable to get peripheral access. Denies fever sweats chills shortness of breath or chest pain. Allergies and Home Medications Allergies Coded Allergies: No Known Drug Allergies (Unverified , 08/29/08) Patient Home Medication List Home Medication List Reviewed: Yes Allopurinol (Zyloprim) 300 Mg Tab, (Reported) Entered as Reported by: KERRY HOUGH on 08/29/08 1535 Ascorbic Acid (Vitamin C) 500 Mg Capsule.sa, (Reported) Entered as Reported by: KERRY HOUGH on 08/29/08 153 Aspirin ([facility] Aspirin) 81 Mg Tab.chew, (Reported) Entered as Reported by: KERRY HOUGH on 08/29/08 154 Fluconazole (Diflucan 150 Mg) 150 Mg Tablet, 1 EACH PO ONCE, (Reported) Entered as Reported by: HEATHER TREJO on 06/20/121745 Furosemide (Furosemide) 80 Mg Tablet, (Reported) Entered as Reported by: KERRY HOUGH on 08/29/08 153 Levothyroxine Sodium (Synthroid) 125 Mcg Tablet, (Reported) Entered as Reported by: KERRY HOUGH on 08/29/08 153 Lisinopril (Zestril) 10 Mg Tablet, 10 MG PO DAILY Prescribed by: MIS BAILON on 08/29/08 174 Multiv,Ca,Iron,Min/Fa/Phytoste (Centrum Cardio Tablet) 1 Each Tablet, (Reported) Entered as Reported by: KERRY HOUGH on 08/29/08 154 Nitroglycerin (Nitrostat) 0.4 Mg Subl, (Reported) Entered as Reported by: KERRY HOUGH on 08/29/08 154 Pantoprazole Sodium (Pantoprazole Sodium) 40 Mg Tablet., (Reported) Entered as Reported by: KERRY HOUGH on 08/29/081535 Potassium Chloride (Klor-Con 10 Tablet) 10 Meq Tablet.sa, (Reported) Entered as Reported by: KERRY HOUGH on 08/29/08 153 Propranolol Hcl (Inderal La) 160 Mg Cap.sa.24h, (Reported) Entered as Reported by: KERRY HOUGH on 08/29/08 153 Terazosin Hcl (Hytrin 2 Mg) 2 Mg Cap, (Reported) Entered as Reported by: KERRY HOUGH on 08/29/081537 Past Nfoqymw-Fkuwcd-Aupijp Hx Reviewed Nursing Assessment Reviewed/Agree w Nursing PMH: Yes Family Medical History Significant Family History: No Pertinent Family Hx Review of Systems-General Constitutional: dizziness; No fever; weakness, other (hair loss) EENTM: No double vision, No mouth pain, No throat pain Respiratory: No cough, No dyspnea on exertion Cardiovascular: No chest pain Gastrointestinal: No abdominal pain, No diarrhea, No loss of appetite; nausea (mild); No vomiting Genitourinary: No decreased output, No dysuria, No frequency Musculoskeletal: No back pain Skin: No change in color, No change in hair/nails; dryness, other (cold skin) Psychiatric/Neurological: Denies Anxiety, Denies Depressed All Other Systems Reviewed Negative Unless Noted: Yes (Negative excepted noted.) Physical Exam-General Problems Physical Exam General Appearance: no apparent distress, obese HEENT: PERRL/EOMI Neck: non-tender, supple Respiratory: chest non-tender, no respiratory distress, no accessory muscle use Cardiovascular: tachycardia, irregularly irregular Gastrointestinal: non tender, soft; No distended Rectal: deferred Back: no CVA tenderness, no vertebral tenderness Extremities: no calf tenderness; No calf tenderness Neurologic/Psychiatric: alert, normal mood/affect, oriented x 3 Skin: cool, other (chronic skin changes to b/l lower extremity), pallor Lymphatic: no adenopathy Assessment/Plan Assessment/Plan Assessment/Plan Poor venous access hypotension Hypothyroidism Pneumoperitoneum Patient blood pressures systolic in the 70's with poor access. Central line placed. See note below for procedure. According to ED nurse, at 0545 pt became unresponsive with subsequent intubation. ED labs revealed leukocytosis, lactic acid of 13 and TSH of 13.8. She was found to be in new onset A-fib and tachycardic with pressures as low as mid 80-90s. She was then transferred to ICU with CT of head and Abdomen pelvis, en route. ED Abdominal CT indicated very minimal free air in the abdomen. Dr. Rosa went to ICU to re-evaluate pt. Abdomen was soft. Patient intubated and hypotensive requiring pressors and o2 at low. Not stable for surgical intervention need to stablize. 0832 pt began to code and subsequent compressions were started. 0834 compressions and coding was stopped per family request, with subsequent demise. PROCEDURE: Right IJ u/s guidance central line placement. Right neck and chest prepped and draped in sterile fashion. U/s used to isolate the right IJ. 3 mL of 1%lidocaine was used to anesthetize the right neck. Using u/s the Right IJ was accessed dark nonpulsatile blood with drawn. Guide wire was inserted and needle removed. 11 blade scalpel was used to make skin incision. Dilator advanced and removed over wire. Triple lumen catheter was then advanced over wire and wire removed. All ports accessed and flushed. Secured with 3-0 silk suture. Washed and dried and sterile bandage applied. Chest x ray pending. Supervisory-Addendum Brief Verification & Attestation Participated in pt care: history, MDM, physical Personally performed: exam, history, MDM, supervision of care Care discussed with: Medical Student Procedures: n/a Results interpretation: Verified all documentation Verification and Attestation of Medical Student E/M Service A medical student performed and documented this service in my presence. I reviewed and verified all information documented by the medical student and made modifications to such information, when appropriate. I personally performed the physical exam and medical decision making. Nancy Rosa, Jun 02, 2022,11:49 VALENTÍN GARCIA Jun 02, 2022 08:48 NANCY ROSA DO Jun 02, 2022 11:43
[2022-06-02] MEDS ORDERED: ETOMIDATE IV SOLN 20 MG/10 ML VIAL IV ONE (08:53)
[2022-06-02] MEDS ORDERED: ROCURONIUM 10 MG/ML 5 ML SYRINGE IV ONE (08:53)
[2022-06-02] MEDS ORDERED: EPINEPHrine 0.1 MG/ML 10 ML (HOSPIRA) SYR IJ ONE (08:53)
--- NOTE | 2022-06-02 08:53 | Anesthesia-Procedure Note ---
Procedures/Interventions Procedure Start/Stop/Diagnosis Date of Procedure: Jun 02, 2022 Start Time: 07:45 Referring Physician: Dr Catherine Preprocedural Diagnosis: Hypotension, Respiratory Failure, A-Fib with RVR Brief History Called to ICU 4 for arterial line placement. She was intubated and had a central line placed earlier this AM in the ER. Currently hypotensive and in A-Fib with RVR. Stop Time: 08:15 Postprocedural Diagnosis: Same Arterial Line Arterial Line Catheter: 22G Type: Radial (U/S used) Location: Left Procedure: prepped, draped in sterile fashion (ChloraPrep), good wave-form was obtained, patient tolerated procedure well, no immediate complications, post procedure area cleaned, post procedure dressing applied TOM ACRROLL DO Jun 02, 2022 08:53
[2022-06-02] MEDS ORDERED: APIXABAN 2.5 MG (ELIQUIS) TABLET PO SCH (09:00)
[2022-06-02] MEDS ORDERED: PANTOPRAZOLE 40 MG (PROTONIX) VIAL IV SCH (09:00)
--- NOTE | 2022-06-02 10:32 | Tele-ICU Progress Note ---
Progress Note called by RN patient is on shock , on 100 % fio2 added pressorws , ordered BMP and ABG empiriically Tx for hyperkalemia and acidosis ( both presumed ) Code blue was called with PEA ACLS protocol was already initiated, and CPR was in progress. PCP MD discussed with POA ROSC achieved Resuscitation efforts were ended as recom from POA to by bedside MD, changed to comfort measures Diagnosis: shock , acute resp failure , RAINE, code blue A total of _ 35 _ minutes of critical care time was devoted to this patient, including reviewing this patient's available data, including medical history, events of note and test results. This was required to treat and/or prevent further deterioration of critical ca re conditions ( as above ). Service provided to a patient admitted to ICU bed via interactive E-CARE system with real-time audio and video telecommunications from [facility]- ICU hub located in [place], [place] Focused Exam Lactate Level 06/02/22 04:50: Lactic Acid Level 13.08*H Height, Weight, BMI Height: 5'3.00" Weight: 208lbs. 0oz. [id number]; 39.00 BMI Method:Stated BIANCA GONSALEZ MD Jun 02, 2022 10:32
[2022-06-02] MEDS ORDERED: inSUlin ASPART (NovoLOG) 1 UNIT/0.01 ML (CHARGE PER UNIT) SC SCH (12:00)
[2022-06-02] MEDS ORDERED: PIPERACILLIN SODIUM/TAZOBACTAM 4.5 GM in NS (IVPB) 100 ML IV SCH (14:00)
[2022-06-03] MEDS ORDERED: KCL 20 MEQ TAB (K-DUR) PO SCH (06:00)
[2022-06-03] MEDS ORDERED: POTASSIUM CL 10MEQ/50ML IVPB 50 ML IV SCH (06:00)
[2022-06-03] MEDS ORDERED: MAGNESIUM 1 GM/100 ML IVPB 100 ML IV SCH (06:00)
== END 2022-06-02 16:33 | disposition expired | DRG 871 ==
LOC: EDUNIT# 01:28 → ER 01:30 → ICU 03:13
PROVIDERS: ADMIT Family Medicine; ATTEND Family Medicine
PROC: 02HV33Z Insertion of Infusion Device into Superior Vena Cava, Percutaneous Approach (ICD-10-PCS; principal; 2022-06-02)
PROC: 03HY32Z Insertion of Monitoring Device into Upper Artery, Percutaneous Approach (ICD-10-PCS; 2022-06-02)
PROC: 5A1935Z Respiratory Ventilation, Less than 24 Consecutive Hours (ICD-10-PCS; 2022-06-02)
PROC: 0BH17EZ Insertion of Endotracheal Airway into Trachea, Via Natural or Artificial Opening (ICD-10-PCS; 2022-06-02)
DX: A41.9 Sepsis, unspecified organism (principal); J96.00 Acute respiratory failure, unspecified whether with hypoxia or hypercapnia; R65.21 Severe sepsis with septic shock; K63.1 Perforation of intestine (nontraumatic); N39.0 Urinary tract infection, site not specified; E87.20 Acidosis, unspecified; N17.9 Acute kidney failure, unspecified; I95.9 Hypotension, unspecified; E03.9 Hypothyroidism, unspecified; I48.91 Unspecified atrial fibrillation; M19.90 Unspecified osteoarthritis, unspecified site; M10.9 Gout, unspecified; Z79.82 Long term (current) use of aspirin; Z79.899 Other long term (current) drug therapy; Z79.01 Long term (current) use of anticoagulants; I10 Essential (primary) hypertension; E87.5 Hyperkalemia; Z66 Do not resuscitate; Z51.5 Encounter for palliative care
CPT/HCPCS: 31500; 36415; 51702; 70450; 71045; 74176; 80053; 81000; 83605; 84132; 84439; 84443; 84480; 85025; 85610; 85730; 87040; 87077; 87088; 87186; 93005; 94002; 94799